=== PATIENT | female | born 1940 | race Caucasian/White ===

== ENCOUNTER 2017-09-03 17:54 | Inpatient (IN) | payer OTHER ==
[2017-09-03 18:58] LABS: Absolute Lymphocytes (CBC) 1.7 K/uL (0.7-4.9); Absolute Monocytes 0.8 K/uL (0.1-1.3); Absolute Neutrophil 4.5 K/uL (1.8-8.0); Basophils % 1.4 % (0-1.3); Eosinophils % 3.1 % (0-4.4); Hematocrit 42.8 % (36.0-45.0); Lymphocytes % 23.3 % (15.3-44.8); MCH 29.8 pg (27.0-35.0); MCV 89.1 fL (80-100); MPV 7.8 fL (7.6-11.3); Monocytes % 11.5 % (3.3-12.3)
[2017-09-03 18:59] LABS: Protime INR 0.96
[2017-09-03 19:05] LABS: Potassium 3.8 mEq/L (3.6-5.0)
[2017-09-03 19:11] LABS: Albumin 3.8 g/dL (3.2-5.5); Bilirubin Direct 0.1 mg/dL (0-0.2); Bilirubin Total 0.5 mg/dL (0.3-1.2); Protein, Total 7.4 g/dL (6.0-8.3)
--- NOTE | 2017-09-03 19:46 | RAD REPORT ---
EXAM DESCRIPTION: CT - Ct Stroke Brain Wo Cont - 09/03/2017 6:23 pm CLINICAL HISTORY: Nonverbal patient, code stroke evaluation CLINICAL HISTORY: None. TECHNIQUE: Axial 5 millimeter thick images of the head were obtained without IV contrast. All CT scans are performed using dose optimization technique as appropriate and may include automated exposure control or mA/KV adjustment according to patient size. FINDINGS: No intracranial hemorrhage, mass, or cerebral edema. No acute cortical based infarction. N o cortical edema or sulcal effacement. Advanced atrophy and chronic ischemic changes are present. Francis tricular size is in proportion to volume loss. No extra-axial fluid collections. Pruitt matter-white m atter differentiation is preserved. Arterial and physiologic calcifications are present. Visualized portions of the mastoid air cells, paranasal sinuses, and orbits are unremarkable. Findings telephoned to the referring clinician 1818 hours. IMPRESSION: Advanced atrophy and chronic ischemic change similar to comparison. No acute intracrania l finding.
--- NOTE | 2017-09-03 20:05 | RAD REPORT ---
EXAM DESCRIPTION: RAD - Chest Single View - 09/03/2017 6:51 pm CLINICAL HISTORY: Code stroke chest film, CVA COMPARISON: July 2016 TECHNIQUE: AP portable chest image was obtained 1811 hours . FINDINGS: No peripheral mass, consolidation or significant failure finding. Interstitial markings ar e prominent, fractionally increased over comparison. Heart and vasculature are normal. No measurable pleural effusion and no pneumothorax. No gross bony abnormality seen. No acute aortic findings suspec leslie. IMPRESSION: Minimal interstitial edema or infiltrate pattern. No focal mass or consolidation.
--- NOTE | 2017-09-03 20:25 | EDPHYS ---
Physician Documentation [facility] Name: Yvette Ordaz Age: 77 yrs Sex: Female : 1940 Arrival Date: 09/03/2017 Time: 17:59 Bed 3 Private MD: Haris Bragg E ED Physician Navin Mendiola HPI: 09/03 18:12 This 77 yrs old Female presents to ER via Unassigned with complaints of jr8 DROOLING, Trouble Walking, Eye Problem. 18:12 Last known well 19:30 yesterday. jr8 18:43 The patient's problem is reported as weakness, that is generalized. Onset: The jr8 symptoms/episode began/occurred acutely, today. Duration: This was a single incident. Context: the episode(s) was witnessed, by family, symptoms became apparent upon waking. The symptoms are alleviated by nothing. The symptoms are aggravated by nothing. Associated signs and symptoms: The patient has no apparent associated signs or symptoms. Severity of symptoms: At their worst the symptoms were moderate in the emergency department the symptoms are unchanged. The patient has not experienced similar symptoms in the past. The patient has not recently seen a physician. Family stated that patient is normally aphasic. Stated that she normally is generally week but can get up and walk a few steps when helped and can sometimes converse but only a few words at a time. Today noticed she would not help to stand at all and has not spoke a word today. Historical: - Allergies: 18:17 No Known Allergies; aj - Home Meds: 18:17 amlodipine 10 mg tab 1 tab once daily for Hypertension [Active]; clopidogrel 75 mg Oral aj tab 1 tab once daily [Active]; famotidine 20 mg Oral tab 1 tab 2 times per day [Active]; hydralazine 25 mg Oral tab 3 tab up to 4 times daily as need if SBP is over 180. for Hypertension [Active]; losartan 50 mg Oral tab 1 tab once daily [Active]; metoprolol tartrate 25 mg Oral tab 1 tab 2 times per day for Hypertension [Active]; nitroglycerin 0.4 mg SL subl 1 tab every 5 minutes [Active]; oxybutynin chloride 5 mg Oral tr24 1 tab once daily [Active]; sertraline 50 mg Oral tab 1 tab once daily [Active]; - PMHx: 18:17 COPD; Hypertension; CVA; aj - PSHx: 18:17 None; aj - Immunization history:: Adult Immunizations up to date. - Social history:: Smoking status: Patient/guardian denies using tobacco. - Ebola Screening: : Patient negative for fever greater than or equal to 101.5 degrees Fahrenheit, and additional compatible Ebola Virus Disease symptoms Patient denies exposure to infectious person Patient denies travel to an Ebola-affected area in the 21 days before illness onset No symptoms or risks identified at this time. ROS: 18:12 Unable to obtain ROS due to patient's speech is incomprehensible. jr8 Exam: 18:12 Eyes: Pupils equal round and reactive to light, extra-ocular motions intact. Lids and jr8 lashes normal. Conjunctiva and sclera are non-icteric and not injected. Cornea within normal limits. Periorbital areas with no swelling, redness, or edema. ENT: Nares patent. No nasal discharge, no septal abnormalities noted. Tympanic membranes are normal and external auditory canals are clear. Oropharynx with no redness, swelling, or masses, exudates, or evidence of obstruction, uvula midline. Mucous membranes moist. Neck: Trachea midline, no thyromegaly or masses palpated, and no cervical lymphadenopathy. Supple, full range of motion without nuchal rigidity, or vertebral point tenderness. No Meningismus. Cardiovascular: Regular rate and rhythm with a normal S1 and S2. No gallops, murmurs, or rubs. Normal PMI, no JVD. No pulse deficits. Respiratory: Lungs have equal breath sounds bilaterally, clear to auscultation and percussion. No rales, rhonchi or wheezes noted. No increased work of breathing, no retractions or nasal flaring. Abdomen/GI: Soft, non-tender, with normal bowel sounds. No distension or tympany. No guarding or rebound. No evidence of tenderness throughout. Back: No spinal tenderness. No costovertebral tenderness. Full range of motion. Skin: Warm, dry with normal turgor. Normal color with no rashes, no lesions, and no evidence of cellulitis. MS/ Extremity: Pulses equal, no cyanosis. Neurovascular intact. Full, normal range of motion. 18:12 Neuro: Orientation: unable to test, Mentation: able to follow commands, Memory: unable to test, Cranial nerves: visual torres are intact. extraocular movements are intact, Facial palsy and sensory deficits are absent. Speech is dysarthric, Motor: moves all fours, Sensation: no obvious gross deficits, seizure activity, is not displayed by the patient, Abnormal movements: there are no abnormal movements. 18:39 Radiologist reports: no acute findings jr Vital Signs: 18:17 BP 172 / 95; Pulse 70; Resp 20; Temp 98.8; Pulse Ox 96% on R/A; Weight 45.36 kg; Height aj 5 ft. 0 in. (152.40 cm); 19:45 BP 153 / 81; Pulse 57; Resp 19; Pulse Ox 96% on R/A; Pain 0/10; aa1 20:45 BP 179 / 105; Pulse 57; Resp 16; Pulse Ox 96% on R/A; Pain 0/10; aa1 21:30 BP 206 / 107; Pulse 62; Resp 18; Pulse Ox 95% on R/A; Pain 0/10; aa1 21:55 BP 164 / 74; Pulse 66; Resp 20; Pulse Ox 97% on R/A; Pain 0/10; aa1 22:15 BP 139 / 67; Pulse 62; Resp 18; Temp 98.7; Pulse Ox 96% on R/A; Pain 0/10; aa1 18:17 Body Mass Index 19.53 (45.36 kg, 152.40 cm) aj NIH Stroke Scale Scores: 18:12 NIHSS Score: 15 jr8 18:25 NIHSS Score: 15 iw MDM: 18:09 Patient medically screened. 8 20:23 Data reviewed: vital signs, nurses notes, lab test result(s), EKG, radiologic studies, [facility] CT scan, plain films, and as a result, I will admit patient. Data interpreted: Pulse oximetry: on room air is 96 %. Interpretation: normal. Counseling: I had a detailed discussion with the patient and/or guardian regarding: the historical points, exam findings, and any diagnostic results supporting the discharge/admit diagnosis, lab results, radiology results, the need for further work-up and treatment in the hospital. 20:24 Physician consultation: Jovan Belle MD was called at 20:24, was contacted at 20:24, jr8 regarding admission, to the telemetry unit. consult, patient's condition, and will see patient. 09/03 18:11 Order name: Hepatic Function; Complete Time: 19:18 [facility] 09/03 18:11 Order name: Magnesium; Complete Time: 19:18 [facility] 09/03 18:11 Order name: Basic Metabolic Panel; Complete Time: 19:18 [facility] 09/03 18:11 Order name: CBC with Diff; Complete Time: 19:20 [facility] 09/03 18:11 Order name: Protime (+inr); Complete Time: 19:18 [facility] 09/03 18:11 Order name: Ptt, Activated; Complete Time: 19:18 [facility] 09/03 18:11 Order name: CT Stroke Brain w/o Contrast; Complete Time: 19:46 bd 09/03 18:11 Order name: Urine Microscopic Only; Complete Time: 20:27 [facility] 09/03 18:11 Order name: Stroke CXR 1 View; Complete Time: 20:06 [facility] 09/03 18:59 Order name: Glucose, Ancillary Testing; Complete Time: 19:08 [facility] 09/03 20:00 Order name: Urine Dipstick--Ancillary (enter results); Complete Time: 20:27 2 09/03 20:27 Order name: Urine Culture [facility] 09/03 18:11 Order name: EKG; Complete Time: 18:12 [facility] 09/03 18:11 Order name: Accucheck; Complete Time: 18:49 [facility] 09/03 18:11 Order name: Cardiac monitoring; Complete Time: 18:49 [facility] 09/03 18:11 Order name: EKG - Nurse/Tech; Complete Time: 18:51 [facility] 09/03 18:11 Order name: IV Saline Lock; Complete Time: 18:49 [facility] 09/03 18:11 Order name: Labs collected and sent; Complete Time: 18:49 [facility] 09/03 18:11 Order name: NPO; Complete Time: 18:49 [facility] 09/03 18:11 Order name: O2 Per Protocol; Complete Time: 18:49 [facility] 09/03 18:11 Order name: O2 Sat Monitoring; Complete Time: 18:49 [facility] 09/03 18:11 Order name: Stroke Swallow Screen; Complete Time: 19:58 [facility] 09/03 18:11 Order name: Urine Dipstick-Ancillary (obtain specimen); Complete Time: 19:56 [facility] 09/03 19:09 Order name: Straight Cath - Urine; Complete Time: 19:56 09/03 20:30 Order name: CONS Physician Consult EDMS Administered Medications: 21:09 Drug: Rocephin 1 grams Route: IV; Rate: calculated rate; Site: right antecubital; aa1 21:19 Follow up: IV Status: Completed infusion aa1 21:09 Drug: Aspirin Suppository 300 mg Route: IN; aa1 22:10 Follow up: Response: No adverse reaction; No change in condition aa1 Point of Care Testing: Blood Glucose: 18:49 Blood Glucose: 140 mg/dL; dh3 Ranges: Critical Glucose Levels:Adult <50 mg/dl or >400 mg/dl <40 mg/dl or >180 mg/dl Disposition: 09/03/17 20:24 Hospitalization ordered by Jovan Belle for Inpatient Admission. Preliminary diagnosis are Altered mental status, unspecified, Urinary tract infection, site not specified. - Bed requested for Telemetry/MedSurg (Inpatient). - Status is Inpatient Admission. aa1 - Condition is Fair. - Problem is new. - Symptoms are unchanged. UTI on Admission? Yes NIH Stroke Scale - NIH Stroke Score Date: 09/03/2017 Time: 18:12 Total Score = 15 1a. Level of Consciousness (LOC) - 0(Alert) 1b. Level of Consciousness (LOC) (Year \T\ Age) - 2(Neither) 1c. LOC Commands (Open \T\ Closes Eyes/Scout Leaser) - 0(Both) 2. Best Gaze (Lateral Gaze Paresis) - 0(Normal) 3. Visual Field Loss - 0(No visual loss) 4. Facial Palsy - 0(Normal) 5a. Left Arm: Motor (10-second hold) - 2(Drift, some effort against gravity) 5b. Right Arm: Motor (10-second hold) - 2(Drift, some effort against gravity) 6a. Left Leg: Motor (5-second hold - always test supine) - 2(Drift, some effort against gravity) 6b. Right Leg: Motor (5-second hold - always test supine) - 2(Drift, some effort against gravity) 7. Limb Ataxia (finger/nose \T\ heel/naylor - test with eyes open) - 0(Absent) 8. Sensory Loss (pinprick arms/legs/face) - 0(Normal) 9. Best Language: Aphasia (description/naming/reading) - 3(Mute, global aphasia) 10. Dysarthria (speech clarity - read or repeat words) - 2(Severe) 11. Extinction and Inattention (visual/tactile/auditory/spatial/personal) - 0(No abnormality) Initials: jr8 NIH Stroke Scale - NIH Stroke Score Date: 09/03/2017 Time: 18:25 Total Score = 15 1a. Level of Consciousness (LOC) - 0(Alert) 1b. Level of Consciousness (LOC) (Year \T\ Age) - 2(Neither) 1c. LOC Commands (Open \T\ Closes Eyes/Scout Leaser) - 0(Both) 2. Best Gaze (Lateral Gaze Paresis) - 0(Normal) 3. Visual Field Loss - 0(No visual loss) 4. Facial Palsy - 0(Normal) 5a. Left Arm: Motor (10-second hold) - 2(Drift, some effort against gravity) 5b. Right Arm: Motor (10-second hold) - 2(Drift, some effort against gravity) 6a. Left Leg: Motor (5-second hold - always test supine) - 2(Drift, some effort against gravity) 6b. Right Leg: Motor (5-second hold - always test supine) - 2(Drift, some effort against gravity) 7. Limb Ataxia (finger/nose \T\ heel/naylor - test with eyes open) - 0(Absent) 8. Sensory Loss (pinprick arms/legs/face) - 0(Normal) 9. Best Language: Aphasia (description/naming/reading) - 3(Mute, global aphasia) 10. Dysarthria (speech clarity - read or repeat words) - 2(Severe) 11. Extinction and Inattention (visual/tactile/auditory/spatial/personal) - 0(No abnormality) Initials: iw Addendum: 09/05/2017 07:00 Co-signature as Attending Physician, Navin Mendiola MD I agree with the kdr assessment and plan of care. Signatures: Dispatcher [employer] Lory Anderson RN RN kl Kern, Alissa, RN RN aa1 Cheyanne Pat RN RN aj Rittger, Kevin, MD MD kdr Roszak, Josh, PA PA jr8 Corrections: (The following items were deleted from the chart) 09/03 18:21 18:12 Head Brain Wo [id number].RAD.BRZ ordered. EDMS EDMS 20:28 20:24 Hospitalization Ordered by Jovan Belle MD for Inpatient Admission. jr8 Preliminary diagnosis is Altered mental status, unspecified; Urinary tract infection, site not specified. Bed requested for Telemetry/MedSurg (Inpatient). Status is Inpatient Admission. Condition is Fair. Problem is new. Symptoms are unchanged. UTI on Admission? Yes. jr8 20:28 20:28 09/03/2017 20:24 Hospitalization Ordered by Jovan Belle MD for jr8 Inpatient Admission. Preliminary diagnosis is Altered mental status, unspecified. Bed requested for Telemetry/MedSurg (Inpatient). Status is Inpatient Admission. Condition is Fair. Problem is new. Symptoms are unchanged. UTI on Admission? Yes. jr8 21:05 20:28 09/03/2017 20:24 Hospitalization Ordered by Jovan Belle MD for jr8 Inpatient Admission. Preliminary diagnosis is Altered mental status, unspecified. Bed requested for Telemetry/MedSurg (Inpatient). Status is Inpatient Admission. Condition is Fair. Problem is new. Symptoms are unchanged. UTI on Admission? No. jr8 21:24 21:05 09/03/2017 20:24 Hospitalization Ordered by Jovan Belle MD for kl Inpatient Admission. Preliminary diagnosis is Altered mental status, unspecified; Urinary tract infection, site not specified. Bed requested for Telemetry/MedSurg (Inpatient). Status is Inpatient Admission. Condition is Fair. Problem is new. Symptoms are unchanged. UTI on Admission? Yes. jr8 22:26 21:24 09/03/2017 20:24 Hospitalization Ordered by Jovan Belle MD for aa1 Inpatient Admission. Preliminary diagnosis is Altered mental status, unspecified; Urinary tract infection, site not specified. Bed requested for Telemetry/MedSurg (Inpatient). Status is Inpatient Admission. Condition is Fair. Problem is new. Symptoms are unchanged. UTI on Admission? Yes. richard
--- NOTE | 2017-09-03 20:25 | ER ---
Nurse's Notes [facility] Name: Yvette Ordaz Age: 77 yrs Sex: Female : 1940 Arrival Date: 09/03/2017 Time: 17:59 Bed 3 Private MD: Haris Bragg E Diagnosis: Altered mental status, unspecified;Urinary tract infection, site not specified Presentation: 09/03 18:13 Presenting complaint: Child states: Woke up at 0730 this AM and was unable to speak or aj bear weight. Decreased activity from normal. Last seen normal at 1930 last night. Patient is drooling with slurred speech. Transition of care: patient was not received from another setting of care. An acute neurological deficit is present. The charge nurse has been notified. Onset of symptoms was September 02, 2017 at 19:30. Risk Assessment: Do you want to hurt yourself or someone else? Patient reports no desire to harm self or others. Initial Sepsis Screen:. Care prior to arrival: None. 18:13 Method Of Arrival: Wheelchair aj 18:13 Acuity: ANN 2 aj 19:00 Initial Sepsis Screen: Does the patient meet any 2 criteria? No. Patient's initial aa1 sepsis screen is negative. Does the patient have a suspected source of infection? No. Patient's initial sepsis screen is negative. Triage Assessment: 18:17 The onset of the patients symptoms was more than six hours ago. The onset of the aj patients symptoms was September 02, 2017 at 19:30. General: Appears in no apparent distress. comfortable, Behavior is calm, cooperative, appropriate for age. Pain: Unable to use pain scale. Patient is unresponsive. Neuro: Level of Consciousness is awake, stuporous, Oriented to none Horticultural Therapist are Weakness in bilateral Gait is ataxic, Speech is slurred, with expressive aphasia noted, Facial symmetry appears normal. Respiratory: Airway is patent Trachea midline Respiratory effort is even, unlabored, Respiratory pattern is regular, symmetrical. Derm: Skin is intact, is fragile, Skin is pink, warm \T\ dry. normal. Stroke Activation: Symptom onset > 6 hours Physician: Stroke Attending; Name: ; Notified At: ; Arrived At: Physician: Chief Stroke Resident; Name: ; Notified At: ; Arrived At: Physician: Stroke Resident; Name: ; Notified At: ; Arrived At: Physician: ED Attending; Name: ; Notified At: 18:07; Arrived At: Physician: ED Resident; Name: ; Notified At: ; Arrived At: Historical: - Allergies: 18:17 No Known Allergies; aj - Home Meds: 18:17 amlodipine 10 mg tab 1 tab once daily for Hypertension [Active]; clopidogrel 75 mg Oral aj tab 1 tab once daily [Active]; famotidine 20 mg Oral tab 1 tab 2 times per day [Active]; hydralazine 25 mg Oral tab 3 tab up to 4 times daily as need if SBP is over 180. for Hypertension [Active]; losartan 50 mg Oral tab 1 tab once daily [Active]; metoprolol tartrate 25 mg Oral tab 1 tab 2 times per day for Hypertension [Active]; nitroglycerin 0.4 mg SL subl 1 tab every 5 minutes [Active]; oxybutynin chloride 5 mg Oral tr24 1 tab once daily [Active]; sertraline 50 mg Oral tab 1 tab once daily [Active]; - PMHx: 18:17 COPD; Hypertension; CVA; aj - PSHx: 18:17 None; aj - Immunization history:: Adult Immunizations up to date. - Social history:: Smoking status: Patient/guardian denies using tobacco. - Ebola Screening: : Patient negative for fever greater than or equal to 101.5 degrees Fahrenheit, and additional compatible Ebola Virus Disease symptoms Patient denies exposure to infectious person Patient denies travel to an Ebola-affected area in the 21 days before illness onset No symptoms or risks identified at this time. Screenin:41 Abuse screen: Denies threats or abuse. Denies injuries from another. Nutritional iw screening: No deficits noted. Tuberculosis screening: No symptoms or risk factors identified. Fall Risk None identified. Assessment: 18:21 Reassessment: pt transported back to ER bed 3, placed on carmella, CURT Kay at bedside iw to assess pt. 18:25 General: Appears in no apparent distress. Behavior is calm, cooperative. Pain: Unable iw to use pain scale. Does not appear to understand pain scale. Neuro: Level of Consciousness is awake, alert, obeys commands, Weakness in bilateral arm(s) leg(s) Facial symmetry appears normal. Cardiovascular: Patient's skin is warm and dry. Respiratory: Respiratory effort is even, unlabored, Respiratory pattern is regular, symmetrical. GI: Abdomen is flat, non-distended. Derm: Skin is pink, warm \T\ dry. normal. Musculoskeletal: Range of motion: limited in all extremities. 18:36 Patient has been NPO before screening. The patient is alert, and able to follow iw commands. The patient exhibits slurred or garbled speech. The patient is exhibiting difficulty speaking. The patient is exhibiting difficulty understanding words. The patient is able to swallow own secretions with no drooling or need for suction. T-PA (Activase) Screening: Indications: Treatment will start within 4.5 hours onset of symptoms: No. 18:42 Reassessment: pt daughter states pt has not been moving as much as she normally does, iw pt is not reaching out for things like she normally does, pt does not normally walk, needs almost total assistance with daily activities. 19:30 The patient did not tolerate one teaspoon of water. Drooling, immediate coughing, aa1 gurgling, or clearing of the throat was noted. Bedside swallow screening discontinued. Patient kept NPO until cleared by Speech Therapy or Physician. When pt given teaspoon of water it immediately ran out of her mouth The patient failed the bedside swallow screening. The patient will be kept NPO until cleared by Speech Therapy or Physician. Provider notified of bedside swallow screening results: Rahul ELIAS. 21:00 Reassessment: Patient appears in no apparent distress at this time. No changes from aa1 previously documented assessment. Patient and/or family updated on plan of care and expected duration. Pain level reassessed. Family at bedside. Awaiting admission to hospital. 22:05 Reassessment: Report given to Marina Wyatt RN. aa1 22:11 Reassessment: Patient appears in no apparent distress at this time. No changes from aa1 previously documented assessment. Neuro: Level of Consciousness is awake, alert, Speech with expressive aphasia noted. Respiratory: Airway is patent Respiratory effort is even, unlabored. Derm: Skin is pink, warm \T\ dry. Vital Signs: 18:17 BP 172 / 95; Pulse 70; Resp 20; Temp 98.8; Pulse Ox 96% on R/A; Weight 45.36 kg; Height aj 5 ft. 0 in. (152.40 cm); 19:45 BP 153 / 81; Pulse 57; Resp 19; Pulse Ox 96% on R/A; Pain 0/10; aa1 20:45 BP 179 / 105; Pulse 57; Resp 16; Pulse Ox 96% on R/A; Pain 0/10; aa1 21:30 BP 206 / 107; Pulse 62; Resp 18; Pulse Ox 95% on R/A; Pain 0/10; aa1 21:55 BP 164 / 74; Pulse 66; Resp 20; Pulse Ox 97% on R/A; Pain 0/10; aa1 22:15 BP 139 / 67; Pulse 62; Resp 18; Temp 98.7; Pulse Ox 96% on R/A; Pain 0/10; aa1 18:17 Body Mass Index 19.53 (45.36 kg, 152.40 cm) aj NIH Stroke Scale Scores: 18:12 NIHSS Score: 15 jr8 18:25 NIHSS Score: 15 iw ED Course: 17:59 Patient arrived in ED. rg4 18:00 Haris Bragg MD is Private Physician. rg4 18:09 [facility] jr8 18:09 Navin Mendiola MD is Attending Physician. jr8 18:15 Triage completed. aj 18:17 Arm band placed on right wrist. Patient placed in an exam room. aj 18:23 CT Stroke Brain w/o Contrast In Process Unspecified. EDMS 18:32 Missed attempt(s): 20 gauge in right antecubital area. Bleeding controlled, band aid iw applied, catheter tip intact. 18:33 Missed attempt(s): 22 gauge in right antecubital area. Bleeding controlled, band aid dh3 applied, catheter tip intact. 18:40 Missed attempt(s): 22 gauge in right antecubital area. Bleeding controlled, band aid dh3 applied, catheter tip intact. 18:43 Initial lab(s) drawn, by me, sent to lab. Inserted saline lock: 22 gauge in right dh3 antecubital area, using aseptic technique. Blood collected. 18:51 Stroke CXR 1 View In Process Unspecified. EDMS 19:00 Patient has correct armband on for positive identification. Placed in gown. Bed in low aa1 position. Call light in reach. Side rails up X2. Adult w/ patient. telemetry monitor on. Pulse ox on. NIBP on. Warm blanket given. 19:36 Jackie Garcia RN is Primary Nurse. aa1 19:45 Urine collected: straight cath specimen, cloudy. Straight cath inserted, using sterile aa1 technique, 16 Fr. Specimen obtained. Returned cloudy urine. Patient tolerated well. 20:24 Jovan Belle MD is Hospitalizing Provider. jr8 21:55 No provider procedures requiring assistance completed. Patient admitted, IV remains in aa1 place. Administered Medications: 21:09 Drug: Rocephin 1 grams Route: IV; Rate: calculated rate; Site: right antecubital; aa1 21:19 Follow up: IV Status: Completed infusion aa1 21:09 Drug: Aspirin Suppository 300 mg Route: NC; aa1 22:10 Follow up: Response: No adverse reaction; No change in condition aa1 Point of Care Testing: Blood Glucose: 18:49 Blood Glucose: 140 mg/dL; dh3 Ranges: Outcome: 20:24 Decision to Hospitalize by Provider. jr8 22:20 Admitted to Tele accompanied by tech, via stretcher, room 201, with chart, Report aa1 called to Marina Wyatt RN 22:20 Condition: stable 22:20 Discharge instructions given to family, Instructed on the need for admit, Demonstrated understanding of instructions. 22:26 Patient left the ED. aa1 NIH Stroke Scale - NIH Stroke Score Date: 09/03/2017 Time: 18:12 Total Score = 15 1a. Level of Consciousness (LOC) - 0(Alert) 1b. Level of Consciousness (LOC) (Year \T\ Age) - 2(Neither) 1c. LOC Commands (Open \T\ Closes Eyes/Rn Charge) - 0(Both) 2. Best Gaze (Lateral Gaze Paresis) - 0(Normal) 3. Visual Field Loss - 0(No visual loss) 4. Facial Palsy - 0(Normal) 5a. Left Arm: Motor (10-second hold) - 2(Drift, some effort against gravity) 5b. Right Arm: Motor (10-second hold) - 2(Drift, some effort against gravity) 6a. Left Leg: Motor (5-second hold - always test supine) - 2(Drift, some effort against gravity) 6b. Right Leg: Motor (5-second hold - always test supine) - 2(Drift, some effort against gravity) 7. Limb Ataxia (finger/nose \T\ heel/naylor - test with eyes open) - 0(Absent) 8. Sensory Loss (pinprick arms/legs/face) - 0(Normal) 9. Best Language: Aphasia (description/naming/reading) - 3(Mute, global aphasia) 10. Dysarthria (speech clarity - read or repeat words) - 2(Severe) 11. Extinction and Inattention (visual/tactile/auditory/spatial/personal) - 0(No abnormality) Initials: josé NIH Stroke Scale - NIH Stroke Score Date: 09/03/2017 Time: 18:25 Total Score = 15 1a. Level of Consciousness (LOC) - 0(Alert) 1b. Level of Consciousness (LOC) (Year \T\ Age) - 2(Neither) 1c. LOC Commands (Open \T\ Closes Eyes/Rn Charge) - 0(Both) 2. Best Gaze (Lateral Gaze Paresis) - 0(Normal) 3. Visual Field Loss - 0(No visual loss) 4. Facial Palsy - 0(Normal) 5a. Left Arm: Motor (10-second hold) - 2(Drift, some effort against gravity) 5b. Right Arm: Motor (10-second hold) - 2(Drift, some effort against gravity) 6a. Left Leg: Motor (5-second hold - always test supine) - 2(Drift, some effort against gravity) 6b. Right Leg: Motor (5-second hold - always test supine) - 2(Drift, some effort against gravity) 7. Limb Ataxia (finger/nose \T\ heel/naylor - test with eyes open) - 0(Absent) 8. Sensory Loss (pinprick arms/legs/face) - 0(Normal) 9. Best Language: Aphasia (description/naming/reading) - 3(Mute, global aphasia) 10. Dysarthria (speech clarity - read or repeat words) - 2(Severe) 11. Extinction and Inattention (visual/tactile/auditory/spatial/personal) - 0(No abnormality) Initials: Signatures: Dispatcher [employer] Jackie Mcleod RN RN aa1 Cheyanne Pat RN RN aj Williams, Irene, RN RN iw Roszak, Josh, PA PA jr8 Billie Beltran 4 Jada Garcia [facility]
[2017-09-03 20:26] LABS: Urine Amorphous Sediment 1+ /HPF (NONE SEEN); Urine Bacteria <20 /HPF (<20); Urine Culture Reflex Order REFLEXED; Urine Mucus 1+ /HPF (NONE SEEN)
[2017-09-03 20:26] LABS: Urine Blood 1+ (NEG); Urine Glucose NEGATIVE (NEG); Urine Protein 1+ (NEG)
[2017-09-03] MEDS ORDERED: CEFTRIAXONE/SWI 1gm 1 GM/10 ML SYR ONE (21:04)
[2017-09-03] MEDS ORDERED: ASPIRIN 600 MG/SUPP PR ONE (21:04)
--- NOTE | 2017-09-03 21:37 | P.HP ---
Certification for Inpatient Patient admitted to: Inpatient With expected LOS: >2 Midnights Practitioner: I am a practitioner with admitting privileges, knowledge of patient current condition, hospital course, and medical plan of care. Services: Services provided to patient in accordance with Admission requirements found in Title 42 Section 412.3 of the Code of Federal Regulations Patient History Date of Service: 09/03/17 Reason for admission: AMS, UTI History of Present Illness: Ms Ordaz is a 77 years old woman with history of HTN, A.Fib, CVA with residual aphasia, and limited mobility, was brought to ED tonight since the patient was more lethargic than usual. She is not able to communicate at all today, she is usually able to say some words according to her daughter. Last time she has seen right was yesterday 19:30. No history of fever or chills. In ER CT head shows no acute abnormalities, again seen advanced atrophy and chronic ischemic change similar to comparison. Lab work shows normal WBC, UA abnormal consistent with UTI. No fever. Allergies clonidine Adverse Reaction (Verified 10/03/16 06:51) lethargy Home Medications: Oxybutynin Chloride [Ditropan Xl] 5 mg PO DAILY 06/21/16 Amlodipine [Norvasc*] 10 mg PO DAILY #30 tab 07/27/16 Clopidogrel Bisulfate [Plavix*] 75 mg PO DAILY #30 tablet 07/27/16 Famotidine [Pepcid] 20 mg PO BID #60 tablet 07/27/16 Nitroglycerin [Nitrostat*] 0.4 mg SL UD PRN #50 tab 07/27/16 Carvedilol [Coreg*] 6.25 mg PO BID #60 tab 10/03/16 Docusate [Colace Cap*] 100 mg PO BID #60 cap 10/03/16 Hydralazine [Apresoline*] 25 mg PO TID PRN #30 tab 10/03/16 Polyethyl Gly 3350 [Glycolax*] 17 gm PO DAILY udbot 10/03/16 - Past Medical/Surgical History Diabetic: No -: HTN -: CVA -: COPD -: AFIB -: right hemiparesis -: aphasic -: HYSTERECTOMY -: RIB REMOVAL - Social History Alcohol use: No CD- Drugs: No Caffeine use: Yes Review of Systems is unable to be obtained (aphasic) Physical Examination - Physical Exam General: Alert, In no apparent distress HEENT: Atraumatic, PERRLA, Mucous membr. moist/pink, Sclerae nonicteric Neck: Supple, 2+ carotid pulse no bruit, No LAD, Without JVD or thyroid abnormality Respiratory: Clear to auscultation bilaterally, Normal air movement Cardiovascular: Normal S1 S2, No gallops Gastrointestinal: Normal bowel sounds, No tenderness Musculoskeletal: No tenderness Integumentary: No rashes Neurological: Normal tone, Normal affect, Abnormal speech (aphasia) Lymphatics: No axilla or inguinal lymphadenopathy - Studies Laboratory Data (last 24 hrs) 09/03/17 18:43: PT 11.3, INR 0.96, APTT 30.7 09/03/17 18:43: WBC 7.4, Hgb 14.3, Hct 42.8, Plt Count 284 09/03/17 18:43: Sodium 136, Potassium 3.8, BUN 23 H, Creatinine 1.07 H, Glucose 147 H, Magnesium 2.0, Total Bilirubin 0.5, AST 21, ALT 13, Alkaline Phosphatase 86 Assessment and Plan - Problems (Diagnosis) (1) UTI (urinary tract infection) Current Visit: Yes Status: Acute Qualifiers: Urinary tract infection type: acute cystitis Hematuria presence: without hematuria Qualified Code(s): N30.00 - Acute cystitis without hematuria (2) Generalized weakness Current Visit: Yes Status: Acute (3) Altered mental status Onset Date: 06/24/16 Current Visit: No Status: Acute Qualifiers: Altered mental status type: unspecified Qualified Code(s): R41.82 - Altered mental status, unspecified (4) Moderate protein-calorie malnutrition Current Visit: No Status: Chronic - Plan The patient will be admitted to the hospital due to worsening aphasia and generalized weakness. This is probably secondary to UTI. CT head shown no acute findings. Will start IV Rocephin, if not improving soon, consider new neurologic event. Dr Huitron consulted. - Advance Directives Does patient have a Living Will: Yes Does patient have a Durable POA for Healthcare: Yes - Code Status/Comfort Care Code Status Assessed: Yes Code Status: Full Code
[2017-09-03] MEDS ORDERED: HYDRALAZINE HCL 20 MG/ML VIAL ONE (21:41)
[2017-09-03] MEDS: HYDRALAZINE HCL 20 MG/ML VIAL IV PRN (21:41)
[2017-09-03] MEDS ORDERED: ONDANSETRON 4 MG/2 ML VIAL IV PRN (22:04)
[2017-09-03] MEDS ORDERED: ACETAMINOPHEN 500 MG TAB PO PRN (22:04)
--- NOTE | 2017-09-03 23:00 | EKG ---
Test Date: 2017-09-03 Test Time: 18:24:41 Senior Principal: JASWINDER MEASUREMENT RESULTS: Intervals: Rate: 71 NV: 118 QRSD: 82 QT: 424 QTc: 460 [place]: P: 41 NV: 118 QRS: -52 T: 166 INTERPRETIVE STATEMENTS: Normal sinus rhythm Left anterior fascicular block Left ventricular hypertrophy with repolarization abnormality Anterior infarct, age undetermined Abnormal ECG Compared to ECG 09/29/2016 15:12:26 Sinus bradycardia no longer present Myocardial infarct finding still present Electronically Signed On 09-03-17 22:59:31 CDT by Eugene Tan
[2017-09-04] MEDS: HYDRALAZINE HCL 20 MG/ML VIAL IV PRN ×2 (05:10→20:18)
[2017-09-04 05:55] LABS: Absolute Lymphocytes (CBC) 0.8 K/uL (0.7-4.9); Absolute Monocytes 0.4 K/uL (0.1-1.3); Absolute Neutrophil 9.8 K/uL (1.8-8.0); Basophils % 0.5 % (0-1.3); Eosinophils % 0.1 % (0-4.4); Lymphocytes % 7.4 % (15.3-44.8); MCV 88.5 fL (80-100); MPV 7.8 fL (7.6-11.3); Monocytes % 3.5 % (3.3-12.3); RBC Red Blood Cell Count 4.74 M/uL (3.86-4.86)
[2017-09-04 06:03] LABS: Potassium 3.7 mEq/L (3.6-5.0)
[2017-09-04 07:31] LABS: Blood Morphology Comment NOT SEEN (NOT SEEN); Platelet Estimate ADEQ; Urine White Blood Cell Casts OK
[2017-09-04] MEDS ORDERED: CEFTRIAXONE 1 GM/NS 50 ML 1 GM/50 ML BAG IV SCH (09:00)
[2017-09-04] MEDS: ASPIRIN 600 MG/SUPP PR SCH (09:50)
[2017-09-04] MEDS: ENOXAPARIN 40 MG/0.4 ML SQ SCH (09:51)
--- NOTE | 2017-09-04 15:47 | PN ---
Date of Progress Note: 09/04/2017 Subjective: The patient is seen and examined. Chart reviewed and case discussed with RN. The patie nt is very much lethargic, aphasic. Review of Systems: Limited due to the patient's medical condition. Medications: Reviewed. Physical Examination: Vital Signs: Temperature 98.2, heart rate 92, blood pressure 123/81, respirations 16, O2 94% on room air. General: Asleep, arousable, but lethargic. Elderly female, appears older than stated age, ill-appea ring, frail. BMI 18. CV: S1, S2. Peripheral pulses present. Regular rate and rhythm. Respiratory: Clear to auscultation bilaterally. No wheezing. Gastrointestinal: Abdomen is soft, nontender, nondistended. Positive bowel sounds. Extremities: No clubbing, cyanosis, edema. Neuro: Unable to properly assess due to the patient's medical condition; however, the patient's spee ch is aphasic. Normal tone, normal affect. Skin: No rashes. Laboratory Data: Sodium 138, potassium 3.7, chloride 102, CO2 26, BUN 24, creatinine 1.17, glucose 1 47, calcium 9.5. WBC 11.1, H and H 14.2 and 42, platelets 284, neutrophils 88%. INR 0.96. Wound cu lture growing 4+ gram-negative rods. Assessment And Plan: A 77-year-old female with: 1.Acute metabolic encephalopathy, may be related to acute infection with urinary tract infection summer mateo possible stroke; however, CT scan of the head does not show any acute finding. Dr. Huitron with Neurology has been consulted. 2.Acute cystitis without hematuria. We will continue with IV Rocephin. We will follow up with cult ures, currently growing gram-negative rods. ID and sensitivity pending. 3.Generalized weakness. 4.Moderate protein-calorie malnutrition. The patient appears cachectic. BMI is 18. 5.Chronic kidney disease, stage 2. We will monitor creatinine. Continue IV fluid. Plan: Follow up with Neurology recommendations. Continue IV antibiotics. Follow up on ID and sensi tivity. We will need to address code status with family. The patient has limited quality of life, m ay need to be transferred to nursing facility, currently lives at home with [id number], who is t he primary caregiver. /KRISTAN Voice ID: [id number] Report ID: [id number]
[2017-09-04] MEDS: D5 0.45 NS 1,000 ML IV SCH ×2 (17:28→20:16)
[2017-09-04] MEDS: DOCUSATE NA 100 MG CAP PO SCH (19:41)
[2017-09-04] MEDS: FAMOTIDINE 20 MG TAB PO SCH (19:41)
[2017-09-04] MEDS ORDERED: CEFTRIAXONE/SWI 1gm 1 GM/10 ML SYR IV SCH (21:00)
[2017-09-05 05:39] LABS: Absolute Lymphocytes (CBC) 2.1 K/uL (0.7-4.9); Absolute Monocytes 0.8 K/uL (0.1-1.3); Absolute Neutrophil 3.8 K/uL (1.8-8.0); Basophils % 1.2 % (0-1.3); Eosinophils % 1.6 % (0-4.4); Hematocrit 40.1 % (36.0-45.0); Lymphocytes % 30.6 % (15.3-44.8); MCH 29.8 pg (27.0-35.0); MCV 88.8 fL (80-100); MPV 7.8 fL (7.6-11.3); Monocytes % 11.5 % (3.3-12.3); RBC Red Blood Cell Count 4.52 M/uL (3.86-4.86)
[2017-09-05 05:44] LABS: Potassium 3.6 mEq/L (3.6-5.0)
[2017-09-05] MEDS: HYDRALAZINE HCL 20 MG/ML VIAL IV PRN ×2 (06:01→12:55)
[2017-09-05] MEDS: DOCUSATE NA 100 MG CAP PO SCH ×2 (09:00→20:11)
[2017-09-05] MEDS: CLOPIDOGREL 75 MG TABLET PO SCH (09:00)
[2017-09-05] MEDS: FAMOTIDINE 20 MG TAB PO SCH ×2 (09:00→20:10)
[2017-09-05] MEDS: ASPIRIN 600 MG/SUPP PR SCH (09:46)
[2017-09-05] MEDS: ENOXAPARIN 40 MG/0.4 ML SQ SCH (09:46)
--- NOTE | 2017-09-05 15:08 | P.PN ---
Subjective Date of Service: 09/05/17 Chief Complaint: AMS, UTI Subjective: Improving Pt lives with Spouse, Daughter and her family. Daughter is primary manager home healthcare of Mr. and Mrs. Law and her Mother in Law. All take a significant amount of care for ADL, movement. Daughter reports that pt usually could assist with walking with walker and max assist to bathroom. States her Mother hasn't left her bed in about three weeks Review of Systems General: Weakness, Malaise Eyes: Eyelid Inflammation ENT: Unremarkable Respiratory: Unremarkable Cardiovascular: Unremarkable Gastrointestinal: Unremarkable Genitourinary: Other (sensitivity to Mefoxin - antibiotic changed/ also sensitive to Macrobid but pt is awaiting swallow screen) Musculoskeletal: Atrophy Integumentary: Unremarkable Neurological: Weakness, Other (family notes patient decline over past 2 months, unable to help with transferring herself. Pt fell a week ago but landed on her daughter on the couch without resultant injury) Physical Examination - Vital Signs Temperature: 98.3 F Blood Pressure: 173/79 Pulse: 64 Respirations: 20 Pulse Ox (%): 94 - Physical Exam General: Cachectic, Demented HEENT: Atraumatic, Normocephalic Neck: Supple Respiratory: Clear to auscultation bilaterally Cardiovascular: No edema Capillary refill: <2 Seconds Gastrointestinal: Hypoactive Musculoskeletal: No clubbing, No swelling Integumentary: No rashes Neurological: Abnormal speech, Dementia Urinary: Other (adult brief) External genitalia: Deferred Rectal: Deferred - Studies Microbiology Data (last 24 hrs): 09/03/17 19:55 Clean Catch Urine [place] Count - Final >100,000 CFU/ML. 09/03/17 19:55 Clean Catch Urine - Final Escherichia Coli Assessment & Plan - Problems (Diagnosis) (1) Generalized weakness Onset Date: 09/04/17 Current Visit: Yes Status: Acute Plan: Consult OT, consider inpatient rehab (2) UTI (urinary tract infection) Onset Date: 09/04/17 Current Visit: Yes Status: Acute Plan: Sensitivity returned, antibiotic changed to Mefoxin. Bacteria also sensitive to Macrobid. Pt has not passed swallow study to attempt po medications. Qualifiers: Urinary tract infection type: acute cystitis Hematuria presence: without hematuria Qualified Code(s): N30.00 - Acute cystitis without hematuria (3) Altered mental status Onset Date: 06/24/16 Current Visit: No Status: Acute Plan: Inpatient rehab for strength and ability to assist with ADLs Qualifiers: Altered mental status type: unspecified Qualified Code(s): R41.82 - Altered mental status, unspecified
--- NOTE | 2017-09-05 15:58 | RAD REPORT ---
EXAM DESCRIPTION: RAD - Barium Swallow Modified - 09/05/2017 3:20 pm CLINICAL HISTORY: suspect silent aspiration COMPARISON: Abdomen 1 View (KUB) dated 09/29/2016 TECHNIQUE: The patient was given liquid, semi-solid and solid forms of barium. Lateral view fluorosc opic imaging was performed in conjunction with speech pathology service. FINDINGS: Laryngeal penetration: not cleared with nectar and honey consistencies. Aspiration: NO cough with thin liquid. Mild pharyngeal residue: vallecular and pyriform with all consistencies. Delayed swallow reflex. Reduced hyolaryngeal excursion. Total fluoro time: 3 minutes 26 seconds.
[2017-09-05] MEDS ORDERED: CEFOXITIN/SWI 1gm 1 GM/10 ML SYR IV SCH (18:00)
[2017-09-05] MEDS ORDERED: CEFOXITIN SODIUM 1 GM/VIAL IVPB SCH (18:00)
[2017-09-05] MEDS ORDERED: CEFOXITIN/SWI 1gm 1 GM/10 ML SYR IVP SCH (18:00)
[2017-09-05] MEDS: CEFOXITIN/SWI 1gm 1 GM/10 ML SYR IVP SCH ×2 (18:02→23:35)
[2017-09-05] MEDS: D5 0.45 NS 1,000 ML IV SCH (19:21)
--- NOTE | 2017-09-05 20:42 | CON ---
Reason For Consultation: Consultation called by hospitalist because of altered mental status and uri nary tract infection. History Of Present Illness: Ms. Ordaz is a 77-year-old patient with multiple medical problems includin g chronic dementia, hypertension, atrial fibrillation, prior stroke with expressive and receptive aph armond, who was noted to be more confused, less interactive than her usual self by her family members. She does live at home with family members 24 hours a day. They are probably able to take care of he r including son and daughter. She came into [facility] on 09/03/2017, today is 09/05/2017 a nd she was evaluated in the emergency room with a brain CT scan which showed no acute ischemic or hem orrhagic change. The study, however, was remarkable for advanced atrophy and chronic small vessel is chemic disease, likely the reason for a vascular dementia. Laboratory studies did show urinary tract infection with positive nitrites, 1+ esterase, and 1+ total protein and cultures did grow [place] a coli, which is extended spectrum beta lactamase and for which she is being treated with cefotaxime per primary care team along with Rocephin. Since admission, per her son she has had times of better interaction where she answers questions. She was able to talk to a grandson and tell him happy day. His birthday was yesterday and she was able to do that and also follows some simple commands as per her son. She was also found to be dehydrated and has received IV fluids. No evidence of any sy stemic infections as her most recent complete blood count with differential is unremarkable. Past Medical History: As indicated above. Allergies: CLONIDINE. Home Medications: Ditropan XL 5 mg daily, Norvasc 10 mg daily, Plavix 75 mg daily, Pepcid 20 mg twic e daily, Nitrostat 0.4 mg sublingual as needed, Coreg 6.25 mg twice daily, Colace 100 mg twice daily, Apresoline 25 mg 3 times daily, Glycolax 17 g daily as needed. Please note, in her stroke she has had residual right hemiparesis and expressive and receptive aphasi as in addition to COPD with her past medical history. Family History: Noncontributory. Surgical History: Hysterectomy and rib removal. Social History: Lives with family. No alcohol, tobacco, or IV drug use. Review of Systems: The patient is unable to give given her aphasic stroke and the family did not report any recent fever s or apparent chills. No nausea or vomiting. No new focal deficits. Physical Examination: Vital signs: Blood pressure 173 systolic max, down to 131 today and that is the systolic blood press ure and diastolic range from 65-79, pulse 64, respiratory rate 15-18, temperature 98.3, oxygen satura tion 94% on room air. Weight 96 pounds. Height 5 feet. BMI 18.8. General: Ms. Ordaz is resting in bed. Family is at the bedside. She is sitting up, getting ready for dinner. There is some mild drooling noted from the right corner of the mouth and she does have the right-sided weakness from a chronic stroke. There is good air movement. Abdomen: Appears soft. Extremities: Show no significant edema or cyanosis. Neurologically: She is alert and tracks with eyes very well. She did not follow my commands to do o rdinary activities such as lift the arm or show thumbs up, but the patient's son, who was in the room , said just earlier she was following some simple commands and was able to interact with her grandson . Again, she has a decreased right nasolabial fold with poor excursion. She has less movement noted in the right upper and lower extremity compared to the left side, unable to fully assess coordinatio n, sensation, gait, and she has increased reflex on the right compared to the left side. Assessment: Ms. Ordaz is a 77-year-old patient with multifactorial reasons for encephalopathy. She pepe s a vascular dementia with a superimposed toxic encephalopathy from her urinary tract infection. She is also mildly dehydrated. In addition, she has an aphasic stroke which contributes to the confusio n. Plan: 1.Continue with antibiotics as appropriate. 2.Continue with hydration as appropriate. 3.Continue with aspirin. She is now 300 mg daily along with Plavix 75 mg daily for stroke risk redu ction. 4.Continue with DVT prophylaxis using Lovenox. 5.Continue with blood pressure management as appropriate. 6.Continue with stool softener. 7.Once the patient is discharged, she will require 24-hour care and supervision for safety, for mobi lization, for transfers, and family is available for that and had been caring those duties out. She may be discharged home and followup with Dr. Huitron as appropriate in 1 month. LB/MODL Voice ID: [id number] Report ID: [id number]
[2017-09-06] MEDS: CEFOXITIN/SWI 1gm 1 GM/10 ML SYR IVP SCH (05:11)
[2017-09-06 05:16] LABS: Absolute Lymphocytes (CBC) 1.7 K/uL (0.7-4.9); Absolute Monocytes 0.8 K/uL (0.1-1.3); Absolute Neutrophil 3.3 K/uL (1.8-8.0); Basophils % 1.1 % (0-1.3); Eosinophils % 3.2 % (0-4.4); Hematocrit 41.7 % (36.0-45.0); Lymphocytes % 27.6 % (15.3-44.8); MCH 30.2 pg (27.0-35.0); MCV 89.3 fL (80-100); MPV 7.7 fL (7.6-11.3); Monocytes % 13.5 % (3.3-12.3); RBC Red Blood Cell Count 4.67 M/uL (3.86-4.86)
[2017-09-06 05:35] LABS: Potassium 3.4 mEq/L (3.6-5.0)
[2017-09-06] MEDS: ASPIRIN 600 MG/SUPP PR SCH (09:54)
[2017-09-06] MEDS: DOCUSATE NA 100 MG CAP PO SCH ×2 (09:54→20:04)
[2017-09-06] MEDS: FAMOTIDINE 20 MG TAB PO SCH (09:54)
[2017-09-06] MEDS: CLOPIDOGREL 75 MG TABLET PO SCH (09:54)
[2017-09-06] MEDS: ENOXAPARIN 40 MG/0.4 ML SQ SCH (09:54)
[2017-09-06] MEDS: D5 0.45 NS 1,000 ML IV SCH (09:56)
--- NOTE | 2017-09-06 11:04 | P.PN ---
Subjective Date of Service: 09/06/17 Chief Complaint: AMS, UTI Subjective: Improving (Patient is doing well eating and drinking hemodynamically stable does not communicate) Review of Systems is unable to be obtained Physical Examination - Vital Signs Temperature: 97.2 F Blood Pressure: 140/76 Pulse: 65 Respirations: 18 Pulse Ox (%): 99 - Physical Exam General: Alert, Cooperative Neck: Supple Respiratory: Clear to auscultation bilaterally - Studies Microbiology Data (last 24 hrs): 09/03/17 19:55 Clean Catch Urine [place] Count - Final >100,000 CFU/ML. 09/03/17 19:55 Clean Catch Urine - Final Escherichia Coli Assessment & Plan - Problems (Diagnosis) (1) ESBL (extended spectrum beta-lactamase) producing bacteria infection Current Visit: Yes Status: Acute Plan: Patient has ESBL infection of the urinary tract plan to insert a PICC line treated with member her mg IV q.8 for 14 days at home patient is tolerating a diet continue with IV fluids Discharge Plan: Home - Code Status/Comfort Care Code Status Assessed: Yes Code Status: Full Code
[2017-09-06] MEDS: NACHLORIDE 0.45% 1,000 ML IV SCH (12:52)
[2017-09-06] MEDS: Meropenem 500 MG in NA CHLORIDE 0.9% 100 ML IV SCH ×2 (12:52→20:03)
[2017-09-06] MEDS ORDERED: Meropenem 500 MG VIAL IV SCH (17:00)
[2017-09-07] MEDS: NACHLORIDE 0.45% 1,000 ML IV SCH ×2 (00:58→16:02)
[2017-09-07 04:36] LABS: Absolute Lymphocytes (CBC) 1.7 K/uL (0.7-4.9); Absolute Monocytes 0.7 K/uL (0.1-1.3); Absolute Neutrophil 4.2 K/uL (1.8-8.0); Basophils % 1.3 % (0-1.3); Eosinophils % 2.5 % (0-4.4); Lymphocytes % 24.1 % (15.3-44.8); MCH 30.5 pg (27.0-35.0); MCV 88.3 fL (80-100); MPV 7.5 fL (7.6-11.3); Monocytes % 10.8 % (3.3-12.3); RBC Red Blood Cell Count 4.42 M/uL (3.86-4.86)
[2017-09-07 05:21] LABS: Potassium 3.4 mEq/L (3.6-5.0)
[2017-09-07] MEDS: ASPIRIN 600 MG/SUPP PR SCH (09:33)
[2017-09-07] MEDS: ENOXAPARIN 30 MG/0.3 ML SQ SCH (09:34)
[2017-09-07] MEDS: DOCUSATE NA 100 MG CAP PO SCH ×2 (09:34→20:11)
[2017-09-07] MEDS: FAMOTIDINE 20 MG TAB PO SCH (09:34)
[2017-09-07] MEDS: Meropenem 500 MG in NA CHLORIDE 0.9% 100 ML IV SCH ×2 (09:35→20:11)
[2017-09-07] MEDS: CLOPIDOGREL 75 MG TABLET PO SCH (09:38)
--- NOTE | 2017-09-07 11:02 | P.PN ---
Subjective Date of Service: 09/07/17 Chief Complaint: AMS, UTI Subjective: Improving (Doing well no new complaints patient has a PICC line at waiting transfer to the detention) Review of Systems is unable to be obtained Physical Examination - Vital Signs Temperature: 97.0 F Blood Pressure: 158/78 Pulse: 56 Respirations: 16 Pulse Ox (%): 96 - Physical Exam General: Alert Respiratory: Clear to auscultation bilaterally Cardiovascular: No edema, Normal S1 S2 Gastrointestinal: Normal bowel sounds, Soft and benign Assessment & Plan - Problems (Diagnosis) (1) ESBL (extended spectrum beta-lactamase) producing bacteria infection Current Visit: Yes Status: Acute Plan: Patient is doing well no new complaints continue with IV antibiotics denies a PICC line awaiting arrangements for detention antibiotics was likely discharge tomorrow renal function is now back to normal (2) Hypertension Current Visit: Yes Status: Acute Plan: Resume all medications Qualifiers: Hypertension type: essential hypertension Qualified Code(s): I10 - Essential (primary) hypertension
--- NOTE | 2017-09-07 12:14 | RAD REPORT ---
EXAM DESCRIPTION: RAD - Chest Single View - 09/07/2017 12:16 am CLINICAL HISTORY: PICC line placement COMPARISON: None. FINDINGS: Portable chest was obtained following placement of a right upper extremity PICC line. The catheter tip is in the SVC.
[2017-09-07] MEDS: CARVEDILOL 6.25 MG TAB PO SCH ×2 (12:32→20:10)
[2017-09-07] MEDS: AMLODIPINE 10 MG TAB PO SCH (12:32)
[2017-09-07] MEDS ORDERED: POTASSIUM 25 MEQ EFFERV TAB PO ONE (15:00)
[2017-09-07 20:05] VITALS: O2SAT 94
[2017-09-07] MEDS ORDERED: CARVEDILOL 6.25 MG TAB PO SCH (21:00)
[2017-09-07] MEDS: HYDRALAZINE HCL 20 MG/ML VIAL IV PRN (23:54)
[2017-09-08 00:17] VITALS: BMI 18.8
[2017-09-08] MEDS: NACHLORIDE 0.45% 1,000 ML IV SCH (03:49)
[2017-09-08 05:31] LABS: Potassium 3.9 mEq/L (3.6-5.0)
[2017-09-08] MEDS: ASPIRIN 600 MG/SUPP PR SCH (09:00)
[2017-09-08] MEDS ORDERED: AMLODIPINE 10 MG TAB PO SCH (09:00)
[2017-09-08] MEDS: AMLODIPINE 10 MG TAB PO SCH (09:17)
[2017-09-08] MEDS: CARVEDILOL 6.25 MG TAB PO SCH (09:17)
[2017-09-08] MEDS: Meropenem 500 MG in NA CHLORIDE 0.9% 100 ML IV SCH (09:17)
[2017-09-08] MEDS: ENOXAPARIN 30 MG/0.3 ML SQ SCH (09:17)
[2017-09-08] MEDS: DOCUSATE NA 100 MG CAP PO SCH (09:17)
[2017-09-08] MEDS: FAMOTIDINE 20 MG TAB PO SCH (09:18)
[2017-09-08] MEDS: CLOPIDOGREL 75 MG TABLET PO SCH (09:18)
--- NOTE | 2017-09-08 10:23 | P.DS ---
Admission Date: 09/03/17 Discharge Date: 09/08/17 Primary Care Provider: Dr. Bragg Disposition: DC HOME/HOME HEALTH CARE Discharge Condition: GOOD Reason for Admission: AMS, UTI Consultations: Neurology-Dr. Huitron - Problems (1) Encephalopathy Current Visit: Yes Status: Acute (2) History of CVA with residual deficit Current Visit: Yes Status: Chronic (3) Atrial fibrillation Current Visit: Yes Status: Chronic Qualifiers: Atrial fibrillation type: chronic Qualified Code(s): I48.2 - Chronic atrial fibrillation (4) GERD (gastroesophageal reflux disease) Current Visit: Yes Status: Chronic Qualifiers: Esophagitis presence: esophagitis presence not specified Qualified Code(s) : K21.9 - Gastro-esophageal reflux disease without esophagitis (5) Dysphagia Current Visit: Yes Status: Chronic Qualifiers: Dysphagia type: pharyngeal phase Qualified Code(s): R13.13 - Dysphagia, pharyngeal phase (6) ESBL (extended spectrum beta-lactamase) producing bacteria infection Current Visit: Yes Status: Acute (7) Hypertension Current Visit: Yes Status: Chronic Qualifiers: Hypertension type: essential hypertension Qualified Code(s): I10 - Essential (primary) hypertension (8) UTI (urinary tract infection) Onset Date: 09/04/17 Current Visit: Yes Status: Acute Qualifiers: Urinary tract infection type: acute cystitis Hematuria presence: without hematuria Qualified Code(s): N30.00 - Acute cystitis without hematuria (9) Acute renal injury Current Visit: No Status: Acute (10) Altered mental status Onset Date: 06/24/16 Current Visit: No Status: Acute Qualifiers: Altered mental status type: unspecified Qualified Code(s): R41.82 - Altered mental status, unspecified (11) Constipation Onset Date: 09/30/16 Current Visit: No Status: Acute Qualifiers: Constipation type: unspecified constipation type Qualified Code(s): K59.00 - Constipation, unspecified (12) Hypertension Onset Date: 06/24/16 Current Visit: No Status: Chronic Qualifiers: Hypertension type: essential hypertension Qualified Code(s): I10 - Essential (primary) hypertension Brief History of Present Illness: 77-year-old female presented with altered mental status. Patient found to have UTI. Patient was admitted for treatment. Hospital Course: Patient found to have a UTI. Urine culture positive for E coli-ESBL. Patient will need long-term IV antibiotic therapy for total 14 days. Arrangements have been made so that the patient can continue with meropenem 500 mg IV twice daily for [address] days. [address] line in place. Patient will continue with UTI prevention. Recommendation is to recheck a cath urine culture in 10-14 days to monitor resolution. If negative PICC line can be removed at 14 days. Home health will be arranged to continue IV antibiotic therapy. Patient has hypertension. This remained stable during the course of his stay. Medications adjusted for better blood pressure control. Patient will continue with Norvasc 10 mg daily and carvedilol 6.25 mg 1 pill twice daily. Recommendation is to maintain blood pressures less 150/80. Further adjustment can be done by her PCP. Patient with history of CVA with residual aphasia. Patient will continue with Plavix 75 mg daily. Patient has GERD. Patient will continue with Pepcid 20 mg 1 pill twice daily. Patient with chronic constipation. Patient will continue with docusate. Patient with history of atrial fibrillation. Currently stable this time. Patient not on chronic anti coagulation therapy due to risk of bleeding and fall. Recommendation to recheck lab-CBC and BMP in 1 week to monitor progress. Vital Signs/Physical Exam: Temp Pulse Resp BP Pulse Ox 97.8 F 63 18 158/78 H 95 09/08/17 08:00 09/08/17 08:00 09/08/17 08:00 09/08/17 08:00 09/08/17 08:00 General: Alert, In no apparent distress, Cooperative HEENT: Atraumatic Neck: Supple Respiratory: Clear to auscultation bilaterally, Normal air movement Cardiovascular: Normal pulses, Regular rate/rhythm Gastrointestinal: Normal bowel sounds, Soft and benign, Non-distended Musculoskeletal: No tenderness, No warmth Neurological: Abnormal strength (Patient with aphasia.) Laboratory Data at Discharge: WBC 6.9 K/uL (4.3-10.9) D 09/07/17 04:25 Hgb 13.5 g/dL (12.0-15.0) 09/07/17 04:25 Hct 39.0 % (36.0-45.0) 09/07/17 04:25 Plt Count 291 K/uL (152-406) 09/07/17 04:25 PT 11.3 SECONDS (9.5-12.5) 09/03/17 18:43 INR 0.96 09/03/17 18:43 APTT 30.7 SECONDS (24.3-36.9) 09/03/17 18:43 Sodium 136 mEq/L (135-145) 09/08/17 04:47 Potassium 3.9 mEq/L (3.6-5.0) 09/08/17 04:47 BUN 14 mg/dL (6-20) 09/08/17 04:47 Creatinine 0.90 mg/dL (0.44-1.00) 09/08/17 04:47 Glucose 98 mg/dL (65-120) 09/08/17 04:47 Magnesium 2.0 mg/dL (1.8-2.5) 09/03/17 18:43 Total Bilirubin 0.5 mg/dL (0.3-1.2) 09/03/17 18:43 AST 21 IU/L (10-42) 09/03/17 18:43 ALT 13 IU/L (10-60) 09/03/17 18:43 Alkaline Phosphatase 86 IU/L (42-121) 09/03/17 18:43 Home Medications: Amlodipine [Norvasc*] 10 mg PO DAILY #30 tab 07/27/16 Clopidogrel Bisulfate [Plavix*] 75 mg PO DAILY #30 tablet 07/27/16 Famotidine [Pepcid] 20 mg PO BID #60 tablet 07/27/16 Carvedilol [Coreg*] 6.25 mg PO BID #60 tab 10/03/16 Docusate [Colace Cap*] 100 mg PO BID #60 cap 10/03/16 Patient Discharge Instructions: 1. Patient will need to follow up with PCP within one week to follow up this hospitalization and continue her care. 2. Patient found to have a UTI. Urine culture positive for E coli-ESBL. Patient will need long-term IV antibiotic therapy for total 14 days. Arrangements have been made so that the patient can continue with meropenem 500 mg IV twice daily for 14 days. [address] line in place. Patient will continue with UTI prevention. Recommendation is to recheck a cath urine culture in 10-14 days to monitor resolution. If negative PICC line can be removed at 14 days. Home health will be arranged to continue IV antibiotic therapy. 3. Patient has hypertension. Patient will continue with Norvasc 10 mg daily and carvedilol 6.25 mg 1 pill twice daily. Recommendation is to maintain blood pressures less 150/80. Further adjustment can be done by her PCP. 4. Patient with history of CVA with residual aphasia. Patient will continue with Plavix 75 mg daily. 5. Patient has GERD. Patient will continue with Pepcid 20 mg 1 pill twice daily. 6. Patient with chronic constipation. Patient will continue with docusate. 7. Patient with history of atrial fibrillation. Currently stable this time. Patient not on chronic anti coagulation therapy due to risk of bleeding and fall. 8. Recommendation to recheck lab-CBC and BMP in 1 week to monitor progress. Diet: Pureed Activity: Fall precautions Time spent managing pt's care (in minutes): 55
[2017-09-08 11:46] VITALS: BP 132/64; TEMP 98.8
== END 2017-09-08 14:46 | disposition home health service (06) | DRG 689 ==
LOC: ER 17:54 → ERHOLD 20:36 → 2ND 21:36
PROVIDERS: ADMIT Internal Medicine; ATTEND Family Medicine
PROC: 02HV33Z Insertion of Infusion Device into Superior Vena Cava, Percutaneous Approach (ICD-10-PCS; principal; 2017-09-06)
DX: N30.00 Acute cystitis without hematuria (principal); G92 Toxic encephalopathy; N17.9 Acute kidney failure, unspecified; I69.351 Hemiplegia and hemiparesis following cerebral infarction affecting right dominant side; E44.0 Moderate protein-calorie malnutrition; Z68.1 Body mass index [BMI] 19.9 or less, adult; I48.2 Chronic atrial fibrillation; K21.9 Gastro-esophageal reflux disease without esophagitis; I69.391 Dysphagia following cerebral infarction; R13.13 Dysphagia, pharyngeal phase; Z16.12 Extended spectrum beta lactamase (ESBL) resistance; I10 Essential (primary) hypertension; K59.00 Constipation, unspecified; B96.20 Unspecified Escherichia coli [E. coli] as the cause of diseases classified elsewhere; I69.320 Aphasia following cerebral infarction; Z79.02 Long term (current) use of antithrombotics/antiplatelets; F01.50 Vascular dementia, unspecified severity, without behavioral disturbance, psychotic disturbance, mood disturbance, and anxiety; E86.0 Dehydration; R53.1 Weakness; N18.2 Chronic kidney disease, stage 2 (mild); I12.9 Hypertensive chronic kidney disease with stage 1 through stage 4 chronic kidney disease, or unspecified chronic kidney disease
CPT/HCPCS: 36415; 51702; 70450; 71045; 74230; 80048; 80076; 81003; 81015; 82962; 83735; 85025; 85610; 85730; 87077; 87086; 87088; 87186; 93005; 96374; 97163; 99285; J0360; J0696; J1650

== ENCOUNTER 2017-09-11 18:24 | Inpatient (IN) | payer OTHER ==
[2017-09-11] MEDS: MEROPENEM 500 MG IV SCH ×2 (08:00→20:00)
--- NOTE | 2017-09-11 19:12 | RAD REPORT ---
EXAM DESCRIPTION: RAD - Chest Single View - 09/11/2017 6:52 pm CLINICAL HISTORY: Abnormal breast sounds, weakness, shortness of breath COMPARISON: Portable chest September 07 TECHNIQUE: AP portable chest image was obtained 1837 hours . FINDINGS: Fibrotic lung changes are present similar to the comparison. PICC line remains in place. N o new failure, infiltrate or mass. Heart and vasculature are normal. No measurable pleural effusion a nd no pneumothorax. No gross bony abnormality seen. No acute aortic findings suspected. IMPRESSION: Baseline fibrotic lung pattern similar to comparison. No new or progressive finding since September 07.
[2017-09-11 19:29] LABS: Absolute Lymphocytes (CBC) 2.4 K/uL (0.7-4.9); Absolute Monocytes 1.4 K/uL (0.1-1.3); Absolute Neutrophil 6.1 K/uL (1.8-8.0); Basophils % 1.4 % (0-1.3); Eosinophils % 2.7 % (0-4.4); Hematocrit 41.5 % (36.0-45.0); MCH 29.1 pg (27.0-35.0); MCV 90.3 fL (80-100); MPV 7.6 fL (7.6-11.3); Monocytes % 13.6 % (3.3-12.3); RBC Red Blood Cell Count 4.59 M/uL (3.86-4.86)
[2017-09-11 19:50] LABS: ALT/SGPT 32 U/L (12-78); AST/SGOT 29 U/L (15-37); Albumin 3.2 g/dL (3.4-5.0); Alkaline Phosphatase 89 U/L (45-117); BUN Blood Urea Nitrogen 23 mg/dL (7-18); Bicarbonate 30 mmol/L (21-32); Bilirubin Direct 0.1 mg/dL (0-0.2); Bilirubin Total 0.5 mg/dL (0.2-1.0); Glucose Level 104 mg/dL (74-106); NT PRO-BNP 3002 pg/mL (<450); Potassium 3.9 mmol/L (3.5-5.1); Protein, Total 7.1 g/dL (6.4-8.2); Sodium Level 136 mmol/L (136-145)
[2017-09-11 20:57] LABS: Urine Blood NEGATIVE (NEG); Urine Glucose NEGATIVE (NEG); Urine Protein NEGATIVE (NEG); Urine pH 6.5 (5.0-7.0)
--- NOTE | 2017-09-11 21:16 | ER ---
Nurse's Notes [facility] Name: Yvette Ordaz Age: 77 yrs Sex: Female : 1940 Arrival Date: 09/11/2017 Time: 18:26 Bed 6 Private MD: Haris Bragg E Diagnosis: Weakness Presentation: 09/11 18:30 Presenting complaint: daughter reports that patient's strength has not improved since ss her recent discharge from hospital on 09/08. Daughter also reports that patient has had increased swelling to bilateral hands and feet. Transition of care: patient was not received from another setting of care. Onset of symptoms is unknown. Risk Assessment: Do you want to hurt yourself or someone else? Patient reports no desire to harm self or others. Initial Sepsis Screen: Does the patient have a suspected source of infection? Yes: Dysuria/Frequency/Urgency/UTI. Initial Sepsis Screen: Does the patient meet any 2 criteria? No. Patient's initial sepsis screen is negative. Care prior to arrival: None. 18:30 Method Of Arrival: Wheelchair ss 18:30 Acuity: ANN 3 ss Stroke Activation: Symptom onset > 6 hours Physician: Stroke Attending; Name: ; Notified At: ; Arrived At: Physician: Chief Stroke Resident; Name: ; Notified At: ; Arrived At: Physician: Stroke Resident; Name: ; Notified At: ; Arrived At: Physician: ED Attending; Name: ; Notified At: ; Arrived At: Physician: ED Resident; Name: ; Notified At: ; Arrived At: Historical: - Allergies: 19:37 No Known Allergies; lp1 - Home Meds: 21:31 meropenem-0.9% sodium chloride 500mg/100ml intravenous pgbk twice a day [Active]; lp1 amlodipine 10 mg tab 1 tab once daily for Hypertension [Active]; hydralazine 25 mg Oral tab 1 tab three times a day for Hypertension [Active]; clopidogrel 75 mg Oral tab 1 tab once daily [Active]; famotidine 20 mg Oral tab 1 tab 2 times per day [Active]; carvedilol 6.25 mg oral tab 1 tab 2 times per day [Active]; - PMHx: 18:37 COPD; CVA; Hypertension; ss - Immunization history:: Adult Immunizations up to date. - Social history:: Smoking status: . - Ebola Screening: : Patient denies exposure to infectious person Patient denies travel to an Ebola-affected area in the 21 days before illness onset. Screenin:41 Abuse screen: Denies threats or abuse. Denies injuries from another. Nutritional lp1 screening: No deficits noted. Tuberculosis screening: No symptoms or risk factors identified. Fall Risk Total Giles Fall Scale indicates High Risk Score (45 or more points). Fall prevention measures have been instituted. Side Rails Up X 2 Family Present and informed to notify staff if the need to leave the bedside As available patient and family educated on Fall Prevention Program and Strategies. Assessment: 19:39 General: Appears in no apparent distress. Behavior is calm. Pain: Unable to use pain lp1 scale. Does not appear to understand pain scale. Neuro: Level of Consciousness is awake, Oriented to person, Per family, patient does not talk, patient noted to mumble. Cardiovascular: Patient's skin is warm and dry. Rhythm is sinus rhythm. Respiratory: Airway is patent Trachea midline Respiratory effort is even, Respiratory pattern is regular, Sputum is unknown Breath sounds are clear bilaterally. Parent/caregiver reports the patient having cough that is. GI: Abdomen is non-distended. : No signs and/or symptoms were reported regarding the genitourinary system. EENT: No signs and/or symptoms were reported regarding the EENT system. Derm: Skin is fragile, is thin, with poor turgor Skin is dry, Skin is normal. Musculoskeletal: limited mobility of neck noted. 20:45 Reassessment: Patient resting, eyes closed, respirations unlabored; family at bedside. lp1 21:19 Reassessment: Per Provider, Patient administered home med of Meropenem 500mg IV. lp1 22:20 Reassessment: Patient appears in no apparent distress at this time. No changes from lp1 previously documented assessment. Patient and/or family updated on plan of care and expected duration. Pain level reassessed. Vital Signs: 18:37 BP 163 / 95; Pulse 86; Resp 16; Temp 99.1; Pulse Ox 95% on R/A; ss 19:38 BP 167 / 85; Pulse 75; Resp 20; Pulse Ox 97% on R/A; lp1 20:30 BP 150 / 61; Pulse 69; Resp 17; Pulse Ox 97% on R/A; lp1 21:31 BP 143 / 93; Pulse 62; Resp 17; Pulse Ox 97% on R/A; lp1 22:21 BP 152 / 72; Pulse 62; Resp 20; Pulse Ox 93% on R/A; lp1 ED Course: 18:26 Patient arrived in ED. as 18:26 Haris Bragg MD is Private Physician. as 18:34 Rahul Carrera PA is PHCP. jr8 18:34 Garrett Galan MD is Attending Physician. jr8 18:35 Cora Suarez RN is Primary Nurse. ph 18:37 Triage completed. ss 18:37 Arm band placed on right wrist. ss 18:49 X-ray completed. Patient tolerated procedure poorly. jr1 18:49 XRAY Chest (1 view) In Process Unspecified. EDMS 19:20 IV is patent, with good blood return, PICC line to right upper arm. lp1 19:41 Patient has correct armband on for positive identification. Placed in gown. Bed in low lp1 position. Side rails up X2. supervisor hand silvering on. Pulse ox on. NIBP on. 20:50 Urine collected: straight cath specimen, clear, Amount Returned: 75mL. Straight cath ks6 inserted, using sterile technique, 16 Fr. Specimen obtained. Returned clear yellow urine. Patient tolerated well. 21:15 Nima Burnett MD is Hospitalizing Provider. jr8 21:45 No provider procedures requiring assistance completed. Patient admitted, IV remains in lp1 place. 22:07 Primary Nurse role handed off by Cora Suarez RN rg2 22:20 Yana Curran, JERRI is Primary Nurse. lp1 Administered Medications: No medications were administered Point of Care Testing: Blood Glucose: 18:37 Blood Glucose: 102 mg/dL; ss Ranges: Outcome: 21:16 Decision to Hospitalize by Provider. jr8 21:45 Condition: stable lp1 21:45 Instructed on the need for admit, to family 22:21 Admitted to Tele accompanied by tech, via stretcher, room 431, with chart, Report lp1 called to JERRI Mejia 22:29 Patient left the ED. lp1 Signatures: Dispatcher [employer] EDMS Rey Terrell rg2 Fanta Phan jr1 Bekah Hickman Shelby, RN RN Yana Curran RN RN lp1 Rahul Carrera PA PA jr8 Cora Suarez, RN RN ph Min Duarte ks6
--- NOTE | 2017-09-11 21:16 | EDPHYS ---
Physician Documentation [facility] Name: Yvette Ordaz Age: 77 yrs Sex: Female : 1940 Arrival Date: 09/11/2017 Time: 18:26 Bed 6 Private MD: Haris Bragg E ED Physician Garrett Galan HPI: 09/11 18:45 This 77 yrs old Female presents to ER via Wheelchair with complaints of jr8 Weakness. 18:45 Family stated that patient was recently released from hospital after having weakness jr8 and UTI. Stated that they wanted to send her to rehab facility but opted not to go. Came back to ED because she is weak again and noticed that her hands and feet are swelling . 18:53 Severity of symptoms: At their worst the symptoms were moderate in the emergency jr8 department the symptoms are unchanged. The patient has not experienced similar symptoms in the past. The patient has not recently seen a physician. Historical: - Allergies: 19:37 No Known Allergies; lp1 - Home Meds: 21:31 meropenem-0.9% sodium chloride 500mg/100ml intravenous pgbk twice a day [Active]; lp1 amlodipine 10 mg tab 1 tab once daily for Hypertension [Active]; hydralazine 25 mg Oral tab 1 tab three times a day for Hypertension [Active]; clopidogrel 75 mg Oral tab 1 tab once daily [Active]; famotidine 20 mg Oral tab 1 tab 2 times per day [Active]; carvedilol 6.25 mg oral tab 1 tab 2 times per day [Active]; - PMHx: 18:37 COPD; CVA; Hypertension; ss - Immunization history:: Adult Immunizations up to date. - Social history:: Smoking status: . - Ebola Screening: : Patient denies exposure to infectious person Patient denies travel to an Ebola-affected area in the 21 days before illness onset. ROS: 18:53 Eyes: Negative for injury, pain, redness, and discharge, ENT: Negative for injury, jr8 pain, and discharge, Neck: Negative for injury, pain, and swelling, Respiratory: Negative for shortness of breath, cough, wheezing, and pleuritic chest pain, Abdomen/GI: Negative for abdominal pain, nausea, vomiting, diarrhea, and constipation, Back: Negative for injury and pain, MS/Extremity: Negative for injury and deformity, Skin: Negative for injury, rash, and discoloration. 18:53 Cardiovascular: Positive for edema, Negative for orthopnea. 18:53 Neuro: Positive for weakness. Exam: 18:53 Eyes: Pupils equal round and reactive to light, extra-ocular motions intact. Lids and jr8 lashes normal. Conjunctiva and sclera are non-icteric and not injected. Cornea within normal limits. Periorbital areas with no swelling, redness, or edema. ENT: Nares patent. No nasal discharge, no septal abnormalities noted. Tympanic membranes are normal and external auditory canals are clear. Oropharynx with no redness, swelling, or masses, exudates, or evidence of obstruction, uvula midline. Mucous membranes moist. Neck: Trachea midline, no thyromegaly or masses palpated, and no cervical lymphadenopathy. Supple, full range of motion without nuchal rigidity, or vertebral point tenderness. No Meningismus. Respiratory: Lungs have equal breath sounds bilaterally, clear to auscultation and percussion. No rales, rhonchi or wheezes noted. No increased work of breathing, no retractions or nasal flaring. Abdomen/GI: Soft, non-tender, with normal bowel sounds. No distension or tympany. No guarding or rebound. No evidence of tenderness throughout. Back: No spinal tenderness. No costovertebral tenderness. Full range of motion. Skin: Warm, dry with normal turgor. Normal color with no rashes, no lesions, and no evidence of cellulitis. MS/ Extremity: Pulses equal, no cyanosis. Neurovascular intact. Full, normal range of motion. Neuro: Awake and alert. Moves all extremities. Sensory grossly intact. Unable to fully assess due to baseline mental status 18:53 Cardiovascular: Rate: normal, Rhythm: regular, Pulses: Pulses are 2+ in right radial artery and left radial artery. Heart sounds: normal, normal S1and S2, no S3 or S4, no murmur, no rub, no gallop, Edema: 1+ edema to level of right hand and left hand, 2+ edema to level of left toes and right toes, JVD: is not appreciated. Vital Signs: 18:37 BP 163 / 95; Pulse 86; Resp 16; Temp 99.1; Pulse Ox 95% on R/A; ss 19:38 BP 167 / 85; Pulse 75; Resp 20; Pulse Ox 97% on R/A; lp1 20:30 BP 150 / 61; Pulse 69; Resp 17; Pulse Ox 97% on R/A; lp1 21:31 BP 143 / 93; Pulse 62; Resp 17; Pulse Ox 97% on R/A; lp1 22:21 BP 152 / 72; Pulse 62; Resp 20; Pulse Ox 93% on R/A; lp1 MDM: 18:34 Patient medically screened. [facility] 21:15 Data reviewed: vital signs, nurses notes, lab test result(s), EKG, radiologic studies, jr8 plain films, and as a result, I will admit patient. Data interpreted: Pulse oximetry: on room air is 97 %. Interpretation: normal. Counseling: I had a detailed discussion with the patient and/or guardian regarding: the historical points, exam findings, and any diagnostic results supporting the discharge/admit diagnosis, lab results, radiology results, the need for further work-up and treatment in the hospital. Physician consultation: Nima Burnett MD was called at 21:15, was contacted at 21:15, regarding admission, to the medical/surgical unit. consult, patient's condition, and will see patient. 09/11 18:35 Order name: Basic Metabolic Panel; Complete Time: 20:05 [facility] 09/11 18:35 Order name: CBC with Diff; Complete Time: 19:32 [facility] 09/11 18:35 Order name: Creatinine for Radiology; Complete Time: 19:48 [facility] 09/11 18:35 Order name: Hepatic Function; Complete Time: 20:05 [facility] 09/11 18:35 Order name: BNP; Complete Time: 20:05 [facility] 09/11 18:40 Order name: glucometer results - FOR PT WITH NO ID; Complete Time: 18:57 09/11 18:35 Order name: IV Saline Lock; Complete Time: 19:42 [facility] 09/11 18:35 Order name: Labs collected and sent; Complete Time: 19:42 [facility] 09/11 18:35 Order name: Urine Dipstick-Ancillary (obtain specimen); Complete Time: 20:52 [facility] 09/11 18:35 Order name: XRAY Chest (1 view); Complete Time: 19:13 [facility] 09/11 20:07 Order name: Troponin (emerg Dept Use Only); Complete Time: 21:00 [facility] 09/11 20:55 Order name: Urine Dipstick--Ancillary (enter results); Complete Time: 21:00 rg2 09/11 21:25 Order name: Social Service Consult EDMS Administered Medications: No medications were administered Point of Care Testing: Blood Glucose: 18:37 Blood Glucose: 102 mg/dL; Ranges: Critical Glucose Levels:Adult <50 mg/dl or >400 mg/dl <40 mg/dl or >180 mg/dl Disposition: 09/12 07:10 Co-signature as Attending Physician, Garrett Galan MD. rn Disposition: 09/11/17 21:16 Hospitalization ordered by Nima Burnett for Observation. Preliminary diagnosis is Weakness. - Bed requested for Telemetry/MedSurg (observation). - Status is Observation. lp1 - Condition is Stable. - Problem is new. - Symptoms are unchanged. UTI on Admission? No Signatures: Dispatcher [facility] Zully Steele RN RN Garrett Galan MD MD rn Smirch, Shelby, RN RN Yana Curran RN RN lp1 Rahul Carrera PA PA jr8 Corrections: (The following items were deleted from the chart) 09/11 21:33 21:16 Hospitalization Ordered by Nima Burnett MD for Observation. Preliminary diagnosis is Weakness. Bed requested for Telemetry/MedSurg (observation). Status is Observation. Condition is Stable. Problem is new. Symptoms are unchanged. UTI on Admission? No. jr8 22:29 21:33 09/11/2017 21:16 Hospitalization Ordered by Nima Burnett MD for Observation. lp1 Preliminary diagnosis is Weakness. Bed requested for Telemetry/MedSurg (observation). Status is Observation. Condition is Stable. Problem is new. Symptoms are unchanged. UTI on Admission? No. mw
[2017-09-11] MEDS ORDERED: ONDANSETRON 4 MG/2 ML VIAL IV PRN (22:03)
[2017-09-11] MEDS ORDERED: ACETAMINOPHEN 500 MG TAB PO PRN (22:03)
[2017-09-11] MEDS ORDERED: MORPHINE 2 MG/ML SYR IV PRN (22:03)
[2017-09-11] MEDS ORDERED: NA CHLORIDE 0.9% 1,000 ML IV SCH (23:00)
[2017-09-12 05:59] LABS: Bilirubin Total 0.6 mg/dL (0.2-1.0); Potassium 3.6 mmol/L (3.5-5.1); Protein, Total 6.4 g/dL (6.4-8.2)
[2017-09-12 06:22] LABS: Folic Acid, (Folate) 12.2 ng/mL (3.1-17.5); Thyroid Stimulating Hormone 1.16 uIU/mL (0.36-3.74)
[2017-09-12 06:24] LABS: Absolute Lymphocytes (CBC) 1.6 K/uL (0.7-4.9); Absolute Neutrophil 4.8 K/uL (1.8-8.0); Basophils % 1.3 % (0-1.3); Eosinophils % 3.6 % (0-4.4); Hematocrit 38.3 % (36.0-45.0); Lymphocytes % 20.1 % (15.3-44.8); MCH 29.6 pg (27.0-35.0); MCV 90.5 fL (80-100); MPV 7.9 fL (7.6-11.3); Monocytes % 13.3 % (3.3-12.3); RBC Red Blood Cell Count 4.23 M/uL (3.86-4.86)
[2017-09-12] MEDS ORDERED: MORPHINE 4 MG/ML SYR IV PRN (07:10)
--- NOTE | 2017-09-12 07:55 | P.PN ---
Subjective Date of Service: 09/12/17 Chief Complaint: Weakness Subjective: Other (Spoke to daughter. Patient has been treated at home for ESBL on Merrem. Since her last hospitalization she has been weak. She has had poor oral intake.) Physical Examination - Vital Signs Temperature: 97.4 F Blood Pressure: 130/68 Pulse: 80 Respirations: 17 Pulse Ox (%): 96 - Physical Exam General: Alert, Other (aphasia) HEENT: Atraumatic, Other (dry mucous membranes) Neck: Supple Respiratory: Clear to auscultation bilaterally, Normal air movement Cardiovascular: Normal pulses, Regular rate/rhythm Gastrointestinal: Normal bowel sounds, Soft and benign, Non-distended, No tenderness, No masses, No rebound, No guarding Musculoskeletal: No erythema, No tenderness, No warmth Integumentary: No tenderness/swelling, No erythema, No warmth, No cyanosis Neurological: Dementia - Studies Laboratory Data (last 24 hrs) 09/11/17 19:20: Creatinine 1.10 09/11/17 19:20: WBC 10.3 D, Hgb 13.3, Hct 41.5, Plt Count 302 09/11/17 19:20: Sodium 136, Potassium 3.9, BUN 23 H, Creatinine 1.10, Glucose 104, Total Bilirubin 0.5, AST 29, ALT 32, Alkaline Phosphatase 89 Medications List Reviewed: Yes Assessment & Plan - Problems (Diagnosis) (1) Weakness Onset Date: 09/12/17 Current Visit: Yes Status: Acute Plan: Etiology unknown. Maybe related to poor intake. Continue treatment of UTI-ESBL. Will check MRI brain to evaluate for CVA. She has a history of CVA with residual aphasia. She has vascular dementia. Will consult Neurology to further address as well. Speech, physical therapy ordered along with [employer] Q[employer] Lab Technician. May need MBS to reassess. Discussed with daughter, she desires SNF placement. (2) ESBL (extended spectrum beta-lactamase) producing bacteria infection Current Visit: No Status: Acute Plan: Continue with Merrem. Will need total of 14 days. Will verify how many days needed left. (3) UTI (urinary tract infection) Onset Date: 09/04/17 Current Visit: No Status: Acute Plan: Continue as above Qualifiers: Urinary tract infection type: site unspecified Hematuria presence: without hematuria Qualified Code(s): N39.0 - Urinary tract infection, site not specified (4) Atrial fibrillation Current Visit: No Status: Chronic Plan: Not on chronic anticoagulation due to risk of falls. Stable. Will continue with Plavix. Qualifiers: Atrial fibrillation type: chronic (5) COPD (chronic obstructive pulmonary disease) Onset Date: 06/24/16 Current Visit: No Status: Chronic Plan: Continue with medication Qualifiers: COPD type: chronic bronchitis Chronic bronchitis type: unspecified Qualified Code(s): J42 - Unspecified chronic bronchitis (6) Dysphagia Current Visit: No Status: Chronic Plan: Will have this reassessed. Qualifiers: (7) GERD (gastroesophageal reflux disease) Current Visit: No Status: Chronic Plan: Continue with medication Qualifiers: (8) History of CVA with residual deficit Current Visit: No Status: Chronic Plan: Continue as above. Will check MRI stroke protocol. (9) Hypertension Onset Date: 06/24/16 Current Visit: No Status: Chronic Plan: Will continue with medication. Qualifiers: (10) Moderate protein-calorie malnutrition Onset Date: 09/04/17 Current Visit: No Status: Chronic Plan: Will have Dietary evaluate and make recommendation. (11) Dementia Current Visit: Yes Status: Chronic Plan: As reported by Neurology on last visit. Qualifiers: Dementia type: vascular dementia Dementia behavioral disturbance: without behavioral disturbance Qualified Code(s): F01.50 - Vascular dementia without behavioral disturbance (12) Edema Current Visit: Yes Status: Acute Plan: Will check ECHO. Suspect CHF, diastolic dysfunction. Qualifiers: Edema type: unspecified Qualified Code(s): R60.9 - Edema, unspecified (13) B12 deficiency Current Visit: Yes Status: Acute Plan: B12 def noted. Will start B12 supplementation Discharge Plan: Other (SNF) Plan to discharge in: 24 Hours Time Spent Managing Pts Care (In Minutes): 55
[2017-09-12] MEDS ORDERED: ALBUTEROL 2.5 MG/3 ML NEB SOL NEB PRN (08:01)
[2017-09-12] MEDS: CLOPIDOGREL 75 MG TABLET PO SCH (09:00)
[2017-09-12] MEDS ORDERED: HYDRALAZINE HCL 25 MG TABLET PO SCH (09:00)
[2017-09-12] MEDS ORDERED: AMLODIPINE 10 MG TAB PO SCH (09:00)
[2017-09-12] MEDS ORDERED: CYANOCOBALAMIN 1000MCG/ML INJ IM SCH (09:00)
[2017-09-12] MEDS: FAMOTIDINE 20 MG TAB PO SCH ×2 (09:00→20:14)
[2017-09-12] MEDS ORDERED: CARVEDILOL 6.25 MG TAB PO SCH (09:00)
[2017-09-12] MEDS: Meropenem 500 MG in NA CHLORIDE 0.9% 100 ML IV SCH ×2 (09:15→20:15)
[2017-09-12] MEDS: NA CHLORIDE 0.9% 1,000 ML IV SCH ×2 (09:18→22:20)
[2017-09-12] MEDS ORDERED: HYDRALAZINE HCL 20 MG/ML VIAL IV PRN (09:28)
--- NOTE | 2017-09-12 12:26 | ECHO ---
HEIGHT: 4 ft 11 in WEIGHT: 94 lb 4.8 oz DATE OF STUDY: 09/12/[address]: Delfino Perez DO 2-DIMENSIONAL: YES M.MODE: YES DOPPLER: YES COLOR FLOW: YES TDS: YES PORTABLE: NO DEFINITY: NO BUBBLE STUDY: NO DIAGNOSIS: WEAKNESS CARDIAC HISTORY: CATHERIZATION: NO SURGERY: NO PROSTHETIC VALVE: NO PACEMAKER: NO MEASUREMENTS (cm) DIASTOLIC (NORMALS) SYSTOLIC (NORMALS) IVSd 1.6 (0.6-1.2) LA Diam 3.8 (1.9-4.0) LVEF 77% LVIDd 3.5 (3.5-5.7) LVIDs 1.9 (2.0-3.5) %FS 45% LVPWd 1.6 (0.6-1.2) Ao Diam (2.0-3.7) 2 DIMENSIONAL ASSESSMENT: RIGHT ATRIUM: NORMAL LEFT ATRIUM: NORMAL RIGHT VENTRICLE: NORMAL LEFT VENTRICLE: NORMAL TRICUSPID VALVE: NORMAL MITRAL VALVE: MITRAL ANNULAR CALCIFICATION PULMONIC VALVE: NORMAL AORTIC VALVE: SCLEROSIS PERICARDIAL EFFUSION: NONE AORTIC ROOT: NORMAL LEFT VENTRICULAR WALL MOTION: NORMAL. DOPPLER/COLOR FLOW: MILD TRICUSPID REGURGITATION NORMAL RIGHT VENTRICULAR SYSTOLIC PRESSURE. COMMENTS: TECHNICALLY DIFFICULT STUDY. NORMAL LEFT VENTRICULAR SIZE AND EJECTION FRACTION. AORTIC SCLEROSIS. MITRAL ANNULAR CALCIFICATION. MILD TRICUSPID REGURGITATION. NORMAL RIGHT VENTRICULAR SYSTOLIC PRESSURE. TECHNOLOGIST: HERIBERTO ROLLINS
--- NOTE | 2017-09-12 15:19 | RAD REPORT ---
EXAM DESCRIPTION: MRI - Stroke Protocol - 09/12/2017 2:55 pm CLINICAL HISTORY: Aphasia/CVA. COMPARISON: September 03, 2017. Head ct TECHNIQUE: Axial, sagittal and coronal magnetic resonance images of the brain were obtained. 12 mL M ultiHance was administered intravenously . Magnetic resonance angiography of the head and neck was pe rformed. Source images were reviewed and reconstructed at 360 degrees rotation. FINDINGS: Diffusion weighted/ADC mapping demonstrates a 5 mm area of abnormal signal within the righ t basal ganglia compatible with an acute infarction. Moderate to marked signal within periventricular, deep and subcortical white matter likely represents ischemic changes secondary to small vessel disease. The ventricles are normal in caliber. An extra-axial fluid collection is not noted. Fluid within the sinuses/mastoids is not seen. origin of the posterior cerebral artery is noted. Mild areas of narrowing involve the anterior, middle and posterior cerebral arteries. An aneurysm is not seen. An acute occlusion is not noted. High-grade stenosis involves the proximal left external carotid artery. Mild plaque is present within the common and internal carotid arteries. The vertebral arteries are tortuous without significant stenosis. IMPRESSION: 1. A 5 mm acute infarct of the right basal ganglia. 2. No acute abnormality involving the arteries of the head and neck. The exam was discussed with Dr. Perez at 3 p.m. September 12, 2017
--- NOTE | 2017-09-12 15:43 | CON ---
Reason For Consultation: Consultation called because of aphasia and possibility of a stroke. History Of Present Illness: Ms. Ordaz is a 77-year-old patient who was just in the hospital about 10 d ays ago with extended-spectrum beta-lactamase urinary tract infection, for which she is on Merrem. S he was discharged home just on the . Today is the . She was discharged with farzana nued antibiotics. The patient's and daughter, who are in the room indicated that since going home, she was actually just staying in bed, did not get out of bed, had to be assisted to even lift her arms up and was not eating. She comes in and was found to be moderately dehydrated. Her creatin ine around 1.2. She was given IV fluids and she has brain MRI pending to rule out a new stroke. The family did indicate that at times she seemed to refuse to eat except only certain things, which she appeared to like, which may be a chicken soup, which the daughter said she would fix for her, but she would only eat about half the amount that she was given and only 1 meal a day. She did not appear t o have any focal changes in terms of face, arm, or leg weakness, any facial asymmetry prior to and si nce being in the hospital. Past Medical History: Chronic obstructive pulmonary disease, chronic stroke, and hypertension. Allergies: NO KNOWN DRUG ALLERGIES. Medications: Meropenem 500 mg twice daily, amlodipine 10 mg daily, hydralazine 25 mg 3 times a day, Plavix 75 mg daily, Pepcid 20 mg twice daily, and carvedilol 6.25 mg twice daily. Family History: Noncontributory. Review of Systems: The patient's family indicated, as noted she has been not wanting to eat, poorly interactive, diffuse ly weak in all extremities without any focal changes. They deny any fevers, any chills, any sweats. No reports of myalgias, arthralgias. No headache. No rash. No psychiatric issues. Physical Examination: Vital Signs: Blood pressure 158/70, pulse 73, respiratory rate 18, and temperature 98.8. Max blood p ressure 207/89. Her oxygen saturation 96%. Again, temperature 97.8. General: Ms. Ordaz is resting in bed, family at the bedside. She is alert. She does track when asked questions, she would tend to blow bubble like stuff from her mouth, but does not verbalize answers, but again will track appropriately. HEENT: She is normocephalic, atraumatic. Sclerae appear anicteric. She has somewhat dry oropharynx . Chest: Decreased breath sounds bilaterally. Abdomen: Soft. Extremities: No significant edema or cyanosis in the extremities. Neurologic: Again alert and does not answer questions when asked, but tracks appropriately. Opened her mouth mildly, but again no verbalization. Her face appears symmetric. Equal movements noted in the arms. Legs held equally in position, but without any asymmetric strength changes obvious just fr om observation. The patient to stimulation move them equally well. Unable to assess coordination an d gait. Laboratory Studies: White blood cell count 7.8, hemoglobin 12.5, hematocrit 38.3, and platelets 276. ESR 31. INR 0.96. Chemistries; sodium 139, potassium 3.4, chloride 103, carbon dioxide 29, BUN 14 , creatinine 0.9, and calcium 8.6. Repeat urinalysis is unremarkable. Echocardiogram shows ejection fraction 77%, aortic sclerosis, mitral annular calcification, and tricuspid regurgitation. Chest x-r ay from the shows baseline fibrotic lungs. The patient does have a PICC line. Assessment: Ms. Ordaz is a 77-year-old patient with a baseline dementia on top of a recent toxic encep halopathy related to urinary tract infection with beta-lactamase extended-spectrum bacteria, for whic h she is on meropenem. She has been home for about 4 days and has become more debilitated and she pepe s just remained in bed the entire time and has poor oral intake and poor hydration. MRI of the brain to be done to rule out presence of an acute stroke. She does not have a stroke by exam, however, ex am is limited because of patient's lack of cooperation. Plan: 1.Followup brain MRI. 2.Agree with continuing Plavix for stroke risk reduction. Continue with Lipitor for dyslipidemia an d stroke risk reduction. Continue with meropenem. 3.Continue with DVT prophylaxis using Lovenox and continue with management of hypertension as indica leslie. AHMET/KRISTAN Voice ID: [id number] Report ID: [id number]
[2017-09-12] MEDS: ENOXAPARIN 40 MG/0.4 ML SQ SCH (18:02)
[2017-09-12] MEDS: ARFORMOTEROL TARTRATE 15 MCG/2 ML VIAL.NEB NEB SCH (19:35)
[2017-09-12] MEDS: CARVEDILOL 6.25 MG TAB PO SCH (20:14)
[2017-09-12] MEDS: ATORVASTATIN 40 MG TAB PO SCH (20:15)
[2017-09-12] MEDS: ENSURE ENLIVE 237 ML CAN PO SCH (20:15)
[2017-09-13] MEDS ORDERED: HYDRALAZINE HCL 20 MG/ML VIAL IV PRN (00:47)
[2017-09-13] MEDS: NA CHLORIDE 0.9% 1,000 ML IV SCH (04:20)
[2017-09-13] MEDS ORDERED: cloNIDine HCl 0.1 MG TAB PO PRN (04:52)
[2017-09-13 05:49] LABS: Absolute Lymphocytes (CBC) 1.4 K/uL (0.7-4.9); Absolute Monocytes 0.8 K/uL (0.1-1.3); Absolute Neutrophil 4.5 K/uL (1.8-8.0); Basophils % 0.9 % (0-1.3); Hematocrit 36.6 % (36.0-45.0); Lymphocytes % 19.6 % (15.3-44.8); MCH 29.7 pg (27.0-35.0); MCV 91.1 fL (80-100); Monocytes % 11.5 % (3.3-12.3); RBC Red Blood Cell Count 4.02 M/uL (3.86-4.86)
[2017-09-13 05:53] LABS: Magnesium 2.1 mg/dL (1.8-2.4); Potassium 3.6 mmol/L (3.5-5.1)
[2017-09-13] MEDS: ARFORMOTEROL TARTRATE 15 MCG/2 ML VIAL.NEB NEB SCH ×2 (08:13→19:40)
--- NOTE | 2017-09-13 08:18 | P.HP ---
Certification for Inpatient Patient admitted to: Inpatient With expected LOS: >2 Midnights Patient will require the following post-hospital care: None Practitioner: I am a practitioner with admitting privileges, knowledge of patient current condition, hospital course, and medical plan of care. Services: Services provided to patient in accordance with Admission requirements found in Title 42 Section 412.3 of the Code of Federal Regulations Patient History Date of Service: 09/11/17 Reason for admission: Weakness History of Present Illness: Patient is a 77-year-old female came to the hospital with altered mental status. The patient was in the hospital a week ago and treated with a resistant urinary tract infection. Patient wound had ESBL E coli. She was discharged with Merrem. Patient has become more debilitated at home and is requiring maximum assistance. She is not really able to do anything for herself so the family brought her back in for evaluation. Patient has bilateral lower extremity contractions and she is not able to answer any of my questions. I am not really sure how she has been functioning, but the family states she was ambulatory a couple weeks ago. It appears she has had a neurologic declining. Will do further evaluation at this time. Allergies No Known Allergies Allergy (Verified 09/12/17 03:24) Home Medications: Amlodipine [Norvasc*] 10 mg PO DAILY #30 tab 07/27/16 Clopidogrel Bisulfate [Plavix*] 75 mg PO DAILY #30 tablet 07/27/16 Famotidine [Pepcid] 20 mg PO BID #60 tablet 07/27/16 Carvedilol [Coreg*] 6.25 mg PO BID #60 tab 10/03/16 Hydralazine [Apresoline] 25 mg PO TID 09/11/17 Meropenem [Merrem 500 MG/100 ML NS IVPB] 500 mg IV Q12H 09/11/17 - Past Medical/Surgical History Has patient received pneumonia vaccine in the past: Yes Diabetic: No -: HTN -: CVA -: COPD -: AFIB -: right hemiparesis -: aphasic -: HYSTERECTOMY -: RIB REMOVAL -: Hip replacement -: Cataract surgery - Family History Father Family History: Reviewed- Non-Contributory - Social History Smoking Status: Former smoker Alcohol use: No CD- Drugs: No Caffeine use: No Place of Residence: Home Review of Systems 10-point ROS is otherwise unremarkable Physical Examination - Vital Signs Temperature: 97.0 F Blood Pressure: 126/62 Pulse: 55 Respirations: 18 Pulse Ox (%): 95 - Physical Exam General: Confused HEENT: Atraumatic, PERRLA, Mucous membr. moist/pink, EOMI, Sclerae nonicteric Neck: Supple, 2+ carotid pulse no bruit, No LAD, Without JVD or thyroid abnormality Respiratory: Clear to auscultation bilaterally, Normal air movement Cardiovascular: Regular rate/rhythm, Normal S1 S2, Systolic murmur Capillary refill: <2 Seconds Gastrointestinal: Normal bowel sounds, Soft and benign, Non-distended, No tenderness Musculoskeletal: No clubbing, No swelling, No tenderness, Contractures Integumentary: No rashes Neurological: Cranial nerves 3-12 intact, Abnormal gait, Abnormal speech, Abnormal strength, Abnormal tone, Abnormal sensation, Abnormal affect Lymphatics: No axilla or inguinal lymphadenopathy Assessment & Plan - Problems (Diagnosis) (1) Generalized weakness Current Visit: Yes Status: Acute (2) Contracture of muscle of lower extremity Current Visit: Yes Status: Acute (3) History of ESBL E. coli infection Current Visit: Yes Status: Acute (4) Altered mental status Onset Date: 06/24/16 Current Visit: No Status: Acute Qualifiers: Altered mental status type: unspecified Qualified Code(s): R41.82 - Altered mental status, unspecified (5) Hypertension Onset Date: 06/24/16 Current Visit: No Status: Chronic Qualifiers: - Plan Plan: 1. Neuro checks q.4 hr 2. MRI of the brain 3. Physical therapy evaluation 4. Speech therapy evaluation 5. Anti-platelet and statin therapy 6. Carotid Doppler and echocardiogram 7. GI and DVT prophylaxis - Advance Directives Does patient have a Living Will: No Does patient have a Durable POA for Healthcare: Yes - Code Status/Comfort Care Code Status Assessed: Yes Code Status: Full Code Critical Care: No Time Spent Managing PTS Care (In Minutes): 50
[2017-09-13] MEDS ORDERED: CYANOCOBALAMIN 1000MCG/ML INJ SQ ONE (08:20)
[2017-09-13] MEDS: ASPIRIN EC 81 MG TAB PO SCH (09:00)
[2017-09-13] MEDS ORDERED: VALSARTAN 160 MG TAB PO SCH (09:00)
[2017-09-13] MEDS: CLOPIDOGREL 75 MG TABLET PO SCH (09:00)
[2017-09-13] MEDS: FAMOTIDINE 20 MG TAB PO SCH (09:00)
[2017-09-13] MEDS: ENSURE ENLIVE 237 ML CAN PO SCH (09:00)
[2017-09-13] MEDS: AMLODIPINE 10 MG TAB PO SCH (09:00)
[2017-09-13] MEDS: CARVEDILOL 6.25 MG TAB PO SCH (09:00)
[2017-09-13] MEDS: Meropenem 500 MG in NA CHLORIDE 0.9% 100 ML IV SCH (10:11)
[2017-09-13] MEDS ORDERED: CLONIDINE 0.2 MG/PATCH TD SCH (14:24)
[2017-09-13] MEDS ORDERED: ENALAPRILAT 1.25 MG/ML VIAL IV PRN (14:33)
[2017-09-13] MEDS: D5 0.45 NS 1,000 ML IV SCH (15:17)
--- NOTE | 2017-09-13 15:39 | PN ---
Subjective: Currently patient lying in bed. She looks comfortable. She has no chest pain or abdomi nal pain. Her daughter is at the bedside. She is very upset because the patient is n.p.o. No fever , no chills overnight. The patient's daughter is at the bedside. She is upset about the fact that h er mother is n.p.o. Review of Systems: Otherwise unobtainable. The patient does not respond to question. Objective: Vital Signs: Currently, blood pressure is 176/73, respiratory rate 18, pulse 62, tempera ture 97.1. General: The patient is alert and not sure how much oriented. HEENT: Atraumatic, normocephalic. Oral mucosa is dry. Neck: Supple. No JVD. No bruits. Heart: Regular rate and rhythm. S1, S2 normal. No gallop. Abdomen: Soft, nontender. No masses. No hepatosplenomegaly. Positive bowel sounds. Extremities: No clubbing, cyanosis, or edema. No calf tenderness. Neurologic: Alert, but she does not answer questions. She tracks appropriately, but I could not do a full exam as patient is not following commands. Laboratory Data: Today, showed CBC within normal. UA was negative. Assessment And Plan: 1.Acute infarct of the right basal ganglia. Neurology consult appreciated. The patient was placed on Plavix. Also she needed aspirin and statin, but that will all be on hold, due to the dysphagia an d risk of aspiration at this point. 2.Hypertension. Not controlled, as the patient is n.p.o. We will start her on metoprolol 5 mg ever y 6 hours and enalapril as needed for blood pressure above 180. 3.Atrial fibrillation. We will place the patient on metoprolol IV instead of Coreg as the patient i s n.p.o. at this point. Continue rate control. The patient not on chronic anticoagulation due to ri sk of falls, but she will be on Plavix when she is able to swallow. 4.Chronic obstructive pulmonary disease, emphysema, stable. 5.Dysphagia. We will keep her n.p.o., and will consult with speech evaluation. 6.Acid reflex. She will resume PPI when she is able to swallow. 7.? Congestive heart failure. Echocardiogram done, was difficult. Study showed normal left ventric ular size and ejection fraction, aortic sclerosis, mitral annular calcification, mild tricuspid regur gitation, normal right ventricular systolic pressure. 8.Malnutrition with weight loss and protein calorie malnutrition. The patient n.p.o. currently, but we will get a speech evaluation to evaluate her, to see if she can swallow. If she fails then she m ay need to have a PEG tube if that is what the family wants. 9.Recent extended-spectrum beta-lactamase, urinary tract infection, where the patient was admitted 4 weeks ago. She is currently on meropenem. We will resume until she finishes a course of antibiotic s. 10.Severe carotid stenosis in the proximal left external carotid artery. The patient will be needin g to be evaluated by Vascular Surgery as outpatient. 11.Continue physical therapy. 12.Deep vein thrombosis prophylaxis, on Lovenox. 13.Change afterwards from normal saline to D5 half normal, given the patient is n.p.o. at this point . PEDRO/KRISTAN Voice ID: [id number] Report ID: [id number]
[2017-09-13] MEDS: ENOXAPARIN 40 MG/0.4 ML SQ SCH (17:05)
[2017-09-13] MEDS ORDERED: METOPROLOL TARTRATE 5 MG/5 ML INJ IV SCH (18:00)
[2017-09-13] MEDS: SODIUM CHLORIDE IV SCH (20:46)
[2017-09-13] MEDS: MEROPENEM 500 MG IV SCH (20:46)
[2017-09-14] MEDS: D5 0.45 NS 1,000 ML IV SCH ×2 (03:33→16:53)
[2017-09-14 05:04] LABS: Absolute Monocytes 0.7 K/uL (0.1-1.3); Absolute Neutrophil 3.5 K/uL (1.8-8.0); Basophils % 1.9 % (0-1.3); Eosinophils % 5.4 % (0-4.4); Hematocrit 35.4 % (36.0-45.0); Lymphocytes % 18.4 % (15.3-44.8); MCH 30.2 pg (27.0-35.0); Monocytes % 11.9 % (3.3-12.3); RBC Red Blood Cell Count 3.93 M/uL (3.86-4.86)
[2017-09-14 05:51] LABS: Magnesium 1.9 mg/dL (1.8-2.4)
[2017-09-14] MEDS: ARFORMOTEROL TARTRATE 15 MCG/2 ML VIAL.NEB NEB SCH ×2 (07:32→19:11)
[2017-09-14] MEDS: SODIUM CHLORIDE IV SCH ×2 (08:29→22:07)
[2017-09-14] MEDS: MEROPENEM 500 MG IV SCH ×2 (08:29→22:07)
[2017-09-14] MEDS: KCL 20 MEQ/100 mL IVPB 20 MEQ/100 ML BAG IV SCH ×2 (12:07→13:40)
[2017-09-14] MEDS ORDERED: D50W 25 GM/50 ML SYRINGE IV PRN ×2 (12:15→19:24)
[2017-09-14] MEDS ORDERED: GLUCAGON 1 MG/VIAL IM PRN ×2 (12:15→19:24)
--- NOTE | 2017-09-14 14:04 | PN ---
Subjective: Currently, she is lying in bed. She looks comfortable. No issues overnight. She is n. p.o. on fluid. Her others are at the bedside. They have questions about her speech eval. The patie nt is extremely poor historian. Review of Systems: Otherwise unobtainable. Objective: Vital Signs: Currently, blood pressure is 167/71, respiratory rate 20, pulse 58, tempera ture 97.8, the patient had 100% on 2 L nasal cannula. General: She is alert, but not oriented. Does not look in any distress. HEENT: Atraumatic, normocephalic. PERRLA. Oral mucosa is dry. Neck: Supple. No JVD. No carotid bruits. Chest: Clear to auscultation. Good air entry. Heart: Regular rate and rhythm. S1, S2 normal. No gallop or murmur. Abdomen: Soft, nontender. No masses. No hepatosplenomegaly. Positive bowel sounds. Extremities: No clubbing, cyanosis, or edema. No tenderness. Neurologic: Alert, but she is not oriented and she is not following commands, but she tracks appropr iately. Laboratory Data: Today, CBC within normal, except for hemoglobin 11.9. Chemistry within normal, exc ept for potassium dropped to 3, glucose at 300 this morning, calcium 7.7, magnesium 1.9. Assessment And Plan: 1.Acute infarction of the right basal ganglia. Neurology consult appreciated. The patient will nee d to be on Plavix, but she is n.p.o. at this point. She will also need to be on aspirin and statin a fter speech eval cleared her for swallowing. If the patient cannot pass speech, then the next step w ould be considering PEG tube if the family would like that. I discussed that with her daughter today at the bedside and she said she will discuss it with the family. 2.Hypertension, borderline control. Given her recent stroke, we will keep her systolic blood pressu re above 150. She is currently on metoprolol IV for rate control for atrial fibrillation as she coul d not take her Coreg orally and she is on enalapril if systolic blood pressure above 180. 3.Atrial fibrillation, rate controlled on IV metoprolol. We will switch back to Coreg when she is a ble to swallow. The patient is not on chronic anticoagulation given the risk of falls. 4.Chronic obstructive pulmonary disease, emphysema, stable. No shortness of breath. 5.Dysphagia, pending swallow eval in the morning. If the patient cannot pass that, then she may end up needing PEG tube. 6.Acid reflux. Continue PPI once the patient is able to swallow. 7.History of congestive heart failure. Echocardiogram study done and the study was inconclusive and difficult with normal ejection fraction, but aortic sclerosis and mitral annular calcification. 8.Cachexia with weight loss and malnutrition secondary to her dysphagia. 9.Recent extended-spectrum beta lactamase urinary tract infection. She is currently on meropenem. We will continue with that after she completed her outpatient course. 10.Deep vein thrombosis prophylaxis, on Lovenox. 11.Hypokalemia. We will replace on potassium protocol. 12.Continue D5W fluid as the patient n.p.o. that was probably causing her hyperglycemia at this poin t. I will start her on low insulin sliding scale. MT/MODL Voice ID: [id number] Report ID: [id number]
[2017-09-14] MEDS ORDERED: INSULIN -REGULAR HUMAN 50 UNIT/0.5 ML ML SQ SCH (16:30)
[2017-09-14] MEDS: ENOXAPARIN 40 MG/0.4 ML SQ SCH (16:53)
[2017-09-14] MEDS ORDERED: KCL 20 MEQ/100 mL IVPB 20 MEQ/100 ML BAG IV SCH (23:45)
[2017-09-15 04:43] VITALS: BMI 19.3
[2017-09-15] MEDS: D5 0.45 NS 1,000 ML IV SCH ×2 (05:15→22:06)
[2017-09-15 05:26] LABS: Absolute Lymphocytes (CBC) 1.7 K/uL (0.7-4.9); Absolute Monocytes 0.9 K/uL (0.1-1.3); Absolute Neutrophil 3.8 K/uL (1.8-8.0); Basophils % 1.1 % (0-1.3); Eosinophils % 4.8 % (0-4.4); Hematocrit 37.4 % (36.0-45.0); MCH 29.7 pg (27.0-35.0); MCV 89.3 fL (80-100); MPV 7.6 fL (7.6-11.3); Monocytes % 12.8 % (3.3-12.3); RBC Red Blood Cell Count 4.19 M/uL (3.86-4.86)
[2017-09-15 05:46] LABS: Potassium 3.9 mmol/L (3.5-5.1)
[2017-09-15] MEDS: INSULIN -REGULAR HUMAN 50 UNIT/0.5 ML ML SQ SCH ×4 (06:00→18:00)
[2017-09-15] MEDS ORDERED: KCL 20 MEQ/100 mL IVPB 20 MEQ/100 ML BAG IV SCH (08:00)
[2017-09-15] MEDS: ASPIRIN EC 81 MG TAB PO SCH (09:00)
[2017-09-15] MEDS: ENSURE ENLIVE 237 ML CAN PO SCH ×2 (09:00→21:00)
[2017-09-15] MEDS: CARVEDILOL 6.25 MG TAB PO SCH ×2 (09:00→22:07)
[2017-09-15] MEDS: FAMOTIDINE 20 MG TAB PO SCH ×2 (09:00→22:07)
[2017-09-15] MEDS: CLOPIDOGREL 75 MG TABLET PO SCH (09:00)
[2017-09-15] MEDS: AMLODIPINE 10 MG TAB PO SCH (09:00)
[2017-09-15] MEDS: MEROPENEM 500 MG IV SCH ×2 (10:32→22:08)
[2017-09-15] MEDS: SODIUM CHLORIDE IV SCH ×2 (10:32→22:08)
--- NOTE | 2017-09-15 11:12 | P.PN ---
Subjective Date of Service: 09/15/17 Primary Care Provider: Dr. Bragg Chief Complaint: Weakness Subjective: Other (Patient not able to eat. Patient to have speech evaluation for dysphagia. Patient found to have CVA.) Physical Examination - Vital Signs Temperature: 97.9 F Blood Pressure: 172/82 Pulse: 57 Respirations: 18 Pulse Ox (%): 93 - Physical Exam General: Alert, Other (Patient with aphasia) HEENT: Atraumatic Neck: Supple Respiratory: Clear to auscultation bilaterally, Normal air movement Cardiovascular: Normal pulses, Regular rate/rhythm Gastrointestinal: Normal bowel sounds, Soft and benign, Non-distended, No masses , No rebound, No guarding Musculoskeletal: No tenderness, No warmth Integumentary: No erythema, No warmth, No cyanosis Neurological: Other (Patient with poor strength.) - Studies Medications List Reviewed: Yes Assessment & Plan - Problems (Diagnosis) (1) Weakness Onset Date: 09/12/17 Current Visit: Yes Status: Acute Plan: Secondary to CVA. Patient found to have right basal ganglia CVA. Patient with history of previous CVA with aphasia. Patient has vascular dementia. Will discuss case with neurology. Patient to have speech reassess her swallowing. If the patient is not able to swallow then will need to discuss about PEG tube placement or possibly hospice. I did speak with the who does not favor PEG tube. Will discuss with daughter. Await recommendations by speech pathology. (2) ESBL (extended spectrum beta-lactamase) producing bacteria infection Current Visit: No Status: Acute Plan: Continue with Merrem. Will need total of 14 days. On Friday she still had for 9 days left. (3) UTI (urinary tract infection) Onset Date: 09/04/17 Current Visit: No Status: Acute Plan: Continue as above Qualifiers: Urinary tract infection type: site unspecified Hematuria presence: without hematuria Qualified Code(s): N39.0 - Urinary tract infection, site not specified (4) Atrial fibrillation Current Visit: No Status: Chronic Plan: Not on chronic anticoagulation due to risk of falls. Stable. Will continue with Plavix. Qualifiers: Atrial fibrillation type: chronic (5) COPD (chronic obstructive pulmonary disease) Onset Date: 06/24/16 Current Visit: No Status: Chronic Plan: Continue with medication Qualifiers: COPD type: chronic bronchitis Chronic bronchitis type: unspecified Qualified Code(s): J42 - Unspecified chronic bronchitis (6) Dysphagia Current Visit: No Status: Chronic Plan: Will have speech pathology assess. Qualifiers: (7) GERD (gastroesophageal reflux disease) Current Visit: No Status: Chronic Plan: Continue with medication Qualifiers: (8) History of CVA with residual deficit Current Visit: No Status: Chronic Plan: Continue as above. Now with new stroke. (9) Hypertension Onset Date: 06/24/16 Current Visit: No Status: Chronic Plan: Will continue with medication. Qualifiers: (10) Moderate protein-calorie malnutrition Onset Date: 09/04/17 Current Visit: No Status: Chronic Plan: Will have Dietary evaluate and make recommendation. (11) Dementia Current Visit: Yes Status: Chronic Plan: As reported by Neurology on last visit. Will discuss with Neurology. Qualifiers: Dementia type: vascular dementia Dementia behavioral disturbance: without behavioral disturbance Qualified Code(s): F01.50 - Vascular dementia without behavioral disturbance (12) Edema Current Visit: Yes Status: Acute Plan: Patient with history of diastolic dysfunction. Qualifiers: Edema type: unspecified Qualified Code(s): R60.9 - Edema, unspecified (13) B12 deficiency Current Visit: Yes Status: Acute Plan: B12 def noted. Will start B12 supplementation (14) CVA (cerebral vascular accident) Current Visit: Yes Status: Acute Plan: Continue as above. Await speech pathology evaluation for her swallowing. Patient will need skilled placement. May need to discuss option of hospice if swallow study abnormal. does not favor PEG tube for the patient. Will need discuss with family members. Qualifiers: CVA mechanism: other Qualified Code(s): I63.8 - Other cerebral infarction Discharge Plan: Other (skilled placement) Time Spent Managing Pts Care (In Minutes): 55
[2017-09-15] MEDS: ARFORMOTEROL TARTRATE 15 MCG/2 ML VIAL.NEB NEB SCH ×2 (11:30→20:11)
--- NOTE | 2017-09-15 15:10 | RAD REPORT ---
EXAM DESCRIPTION: RAD - Barium Swallow Modified - 09/15/2017 3:03 pm CLINICAL HISTORY: suspected aspiration and decline of swallow History of CVA with coughing and choking. COMPARISON: Barium Swallow Modified dated 09/05/2017 TECHNIQUE: The patient was given liquid, semi-solid and solid forms of barium. Lateral view fluorosc opic imaging was performed in conjunction with speech pathology service. FINDINGS: LIMITED D/T PT COMPLIANCE; TWO TRIALS OF PUDDING THICK CONSISTENCY OBSERVED DELAYED SWALLOW REFLEX REDUCED HYOLARYNGEAL EXCURSION Total fluoroscopy time: 7 minutes 20 seconds.
[2017-09-15] MEDS: ENOXAPARIN 40 MG/0.4 ML SQ SCH (18:09)
[2017-09-15] MEDS: ATORVASTATIN 40 MG TAB PO SCH (22:08)
[2017-09-16 05:45] LABS: Potassium 3.5 mmol/L (3.5-5.1)
[2017-09-16] MEDS: INSULIN -REGULAR HUMAN 50 UNIT/0.5 ML ML SQ SCH ×4 (05:56→18:00)
[2017-09-16] MEDS ORDERED: KCL 20 MEQ/100 mL IVPB 20 MEQ/100 ML BAG IV SCH (06:00)
[2017-09-16] MEDS: ARFORMOTEROL TARTRATE 15 MCG/2 ML VIAL.NEB NEB SCH ×2 (08:16→20:20)
[2017-09-16] MEDS: ENSURE ENLIVE 237 ML CAN PO SCH ×2 (09:00→21:00)
[2017-09-16] MEDS: D5 0.45 NS 1,000 ML IV SCH (09:40)
--- NOTE | 2017-09-16 09:46 | P.PN ---
Subjective Date of Service: 09/16/17 Primary Care Provider: Dr. Bragg Chief Complaint: Weakness Subjective: Other (Stable no significant change. Patient tolerated diet last night with family. at bedside.) Physical Examination - Vital Signs Temperature: 97.8 F Blood Pressure: 156/84 Pulse: 61 Respirations: 15 Pulse Ox (%): 92 - Physical Exam General: Alert, Demented HEENT: Atraumatic Neck: Supple Respiratory: Clear to auscultation bilaterally, Normal air movement Cardiovascular: Normal pulses, Regular rate/rhythm Gastrointestinal: Normal bowel sounds, Soft and benign, Non-distended, No tenderness, No masses, No rebound, No guarding Musculoskeletal: No tenderness, No warmth Neurological: Dementia - Studies Medications List Reviewed: Yes Assessment & Plan - Problems (Diagnosis) (1) Weakness Onset Date: 09/12/17 Current Visit: Yes Status: Acute Plan: Secondary to CVA. Patient found to have right basal ganglia CVA. Patient with history of previous CVA with aphasia. Patient also has vascular dementia. Patient had swallow tests yesterday. Case discussed at length with speech therapy. Patient at risk for aspiration. Because of her dementia she is not able to swallow appropriately. This was addressed in detail with daughter and . Options were address including PEG tube placement, advanced directives an hospice. Family does not want PEG tube placed. They have to finalize the possibility of advanced directives leaning towards do not resuscitate along with hospice today. I was able to discuss this in detail with the . Patient has poor prognosis for recovery due to poor nutrition and current status. Anticipate discharge to hospice at home. Will rediscuss with family later today. Will continue with treatment for her UTI. (2) ESBL (extended spectrum beta-lactamase) producing bacteria infection Current Visit: No Status: Acute Plan: Continue with Merrem. Will need total of 14 days. Patient still has about 6 days left of treatment. (3) UTI (urinary tract infection) Onset Date: 09/04/17 Current Visit: No Status: Acute Plan: Continue as above Qualifiers: Urinary tract infection type: site unspecified Hematuria presence: without hematuria Qualified Code(s): N39.0 - Urinary tract infection, site not specified (4) Atrial fibrillation Current Visit: No Status: Chronic Plan: Not on chronic anticoagulation due to risk of falls. Stable. Will continue with Plavix. Qualifiers: Atrial fibrillation type: chronic (5) COPD (chronic obstructive pulmonary disease) Onset Date: 06/24/16 Current Visit: No Status: Chronic Plan: Continue with medication Qualifiers: COPD type: chronic bronchitis Chronic bronchitis type: unspecified Qualified Code(s): J42 - Unspecified chronic bronchitis (6) Dysphagia Current Visit: No Status: Chronic Plan: Spoke at length to speech pathology about her current condition. Due to her dementia sees not able to process her action of swallowing appropriately. Patient still at risk for aspiration. Options were address with family. Patient currently with a pureed diet with thickened food. Continue as above. Will need to monitor for aspiration Qualifiers: (7) GERD (gastroesophageal reflux disease) Current Visit: No Status: Chronic Plan: Continue with medication Qualifiers: (8) History of CVA with residual deficit Current Visit: No Status: Chronic Plan: Continue as above. Now with new stroke. (9) Hypertension Onset Date: 06/24/16 Current Visit: No Status: Chronic Plan: Will continue with medication. Qualifiers: Hypertension type: essential hypertension (10) Moderate protein-calorie malnutrition Onset Date: 09/04/17 Current Visit: No Status: Chronic Plan: Discuss in detail with speech pathology. Patient with malnutrition likely from poor intake. This will likely continue. Pursuing possible hospice. Continue as above. (11) Dementia Current Visit: Yes Status: Chronic Plan: As reported by Neurology on last visit. Discuss with family. Continue with above plan of care. Pursuing hospice at this time. Qualifiers: Dementia type: vascular dementia Dementia behavioral disturbance: without behavioral disturbance Qualified Code(s): F01.50 - Vascular dementia without behavioral disturbance (12) Edema Current Visit: Yes Status: Acute Plan: Patient with history of diastolic dysfunction. Qualifiers: Edema type: unspecified Qualified Code(s): R60.9 - Edema, unspecified (13) B12 deficiency Current Visit: Yes Status: Acute Plan: B12 def noted. Will start B12 supplementation (14) CVA (cerebral vascular accident) Current Visit: Yes Status: Acute Plan: Continue as above. Qualifiers: CVA mechanism: other Qualified Code(s): I63.8 - Other cerebral infarction (15) Encounter for hospice care discussion Current Visit: Yes Status: Acute Plan: This was discussed at length yesterday and again today with family. Family is to decide on possible hospice and DNR advanced directives today. Await for the decision. Discharge Plan: Home Plan to discharge in: 24 Hours - Code Status/Comfort Care Code Status Assessed: Yes (This was addressed in detail. Family leaning towards hospice) Time Spent Managing Pts Care (In Minutes): 55
[2017-09-16] MEDS: CARVEDILOL 6.25 MG TAB PO SCH ×2 (10:10→21:00)
[2017-09-16] MEDS: CLOPIDOGREL 75 MG TABLET PO SCH (10:10)
[2017-09-16] MEDS: ASPIRIN EC 81 MG TAB PO SCH (10:10)
[2017-09-16] MEDS: FAMOTIDINE 20 MG TAB PO SCH ×3 (10:10→21:03)
[2017-09-16] MEDS: AMLODIPINE 10 MG TAB PO SCH (10:10)
[2017-09-16] MEDS: MEROPENEM 500 MG IV SCH ×2 (10:20→21:02)
[2017-09-16] MEDS: SODIUM CHLORIDE IV SCH ×2 (10:20→21:02)
[2017-09-16] MEDS: ENOXAPARIN 40 MG/0.4 ML SQ SCH (17:11)
[2017-09-16] MEDS: ATORVASTATIN 40 MG TAB PO SCH ×2 (21:00→21:03)
[2017-09-17] MEDS: D5 0.45 NS 1,000 ML IV SCH ×2 (00:45→12:06)
[2017-09-17 05:30] LABS: Potassium 3.6 mmol/L (3.5-5.1)
[2017-09-17] MEDS: INSULIN -REGULAR HUMAN 50 UNIT/0.5 ML ML SQ SCH ×3 (05:53→11:01)
[2017-09-17] MEDS ORDERED: KCL 20 MEQ/100 mL IVPB 20 MEQ/100 ML BAG IV SCH (06:00)
[2017-09-17] MEDS: ARFORMOTEROL TARTRATE 15 MCG/2 ML VIAL.NEB NEB SCH (08:33)
[2017-09-17] MEDS: AMLODIPINE 10 MG TAB PO SCH (09:00)
[2017-09-17] MEDS: CARVEDILOL 6.25 MG TAB PO SCH (09:00)
[2017-09-17] MEDS: ENSURE ENLIVE 237 ML CAN PO SCH (09:00)
[2017-09-17] MEDS: CLOPIDOGREL 75 MG TABLET PO SCH (09:22)
[2017-09-17] MEDS: SODIUM CHLORIDE IV SCH (09:23)
[2017-09-17] MEDS: ASPIRIN EC 81 MG TAB PO SCH (09:23)
[2017-09-17] MEDS: MEROPENEM 500 MG IV SCH (09:23)
[2017-09-17] MEDS: FAMOTIDINE 20 MG TAB PO SCH (09:23)
[2017-09-17 09:30] VITALS: O2SAT 95
--- NOTE | 2017-09-17 11:14 | P.DS ---
Admission Date: 09/13/17 Discharge Date: 09/17/17 Primary Care Provider: Dr. Bragg Disposition: HOSPICE-HOME Discharge Condition: GOOD Reason for Admission: Weakness Consultations: Neurology-Dr. Huitron Procedures: MRI/MRA brain: FINDINGS: Diffusion weighted/ADC mapping demonstrates a 5 mm area of abnormal signal within the right basal ganglia compatible with an acute infarction. Moderate to marked signal within periventricular, deep and subcortical white matter likely represents ischemic changes secondary to small vessel disease. The ventricles are normal in caliber. An extra-axial fluid collection is not noted. Fluid within the sinuses/mastoids is not seen. origin of the posterior cerebral artery is noted. Mild areas of narrowing involve the anterior, middle and posterior cerebral arteries. An aneurysm is not seen. An acute occlusion is not noted. High-grade stenosis involves the proximal left external carotid artery. Mild plaque is present within the common and internal carotid arteries. The vertebral arteries are tortuous without significant stenosis. IMPRESSION: 1. A 5 mm acute infarct of the right basal ganglia. 2. No acute abnormality involving the arteries of the head and neck. Echocardiogram: Ejection fraction 77% - Problems (1) Weakness Onset Date: 09/12/17 Current Visit: Yes Status: Acute (2) ESBL (extended spectrum beta-lactamase) producing bacteria infection Current Visit: No Status: Acute (3) UTI (urinary tract infection) Onset Date: 09/04/17 Current Visit: No Status: Acute Qualifiers: Urinary tract infection type: site unspecified Hematuria presence: without hematuria Qualified Code(s): N39.0 - Urinary tract infection, site not specified (4) Atrial fibrillation Current Visit: No Status: Chronic Qualifiers: Atrial fibrillation type: chronic (5) COPD (chronic obstructive pulmonary disease) Onset Date: 06/24/16 Current Visit: No Status: Chronic Qualifiers: COPD type: chronic bronchitis Chronic bronchitis type: unspecified Qualified Code(s): J42 - Unspecified chronic bronchitis (6) Dysphagia Current Visit: No Status: Chronic Qualifiers: (7) GERD (gastroesophageal reflux disease) Current Visit: No Status: Chronic Qualifiers: (8) History of CVA with residual deficit Current Visit: No Status: Chronic (9) Hypertension Onset Date: 06/24/16 Current Visit: No Status: Chronic Qualifiers: Hypertension type: essential hypertension (10) Moderate protein-calorie malnutrition Onset Date: 09/04/17 Current Visit: No Status: Chronic (11) Dementia Current Visit: Yes Status: Chronic Qualifiers: Dementia type: vascular dementia Dementia behavioral disturbance: without behavioral disturbance Qualified Code(s): F01.50 - Vascular dementia without behavioral disturbance (12) Edema Current Visit: Yes Status: Acute Qualifiers: Edema type: unspecified Qualified Code(s): R60.9 - Edema, unspecified (13) B12 deficiency Current Visit: Yes Status: Acute (14) CVA (cerebral vascular accident) Current Visit: Yes Status: Acute Qualifiers: CVA mechanism: other Qualified Code(s): I63.8 - Other cerebral infarction (15) Encounter for hospice care discussion Current Visit: Yes Status: Acute Brief History of Present Illness: 77-year-old female presented emergency room with declining health. Increased fatigue and confusion was noted. Patient had recently been hospitalized for UTI requiring PICC line and IV antibiotic therapy as an outpatient. Patient has multiple medical problems including previous CVA with residual aphasia, dementia, atrial fibrillation, COPD, hypertension, dementia. Initial lab work was unremarkable. Patient was admitted for further treatment and evaluation. Hospital Course: During the course of her stay, the patient was further evaluated. Neurology was consulted. MRI/MRA brain showed 5 mm right basal ganglia CVA. Echocardiogram showed ejection fraction within normal range. The patient was continued on IV antibiotic therapy as the patient recently had ESBL in the urine. Pro calcitonin was unremarkable. Urine was unremarkable. Overall the patient's condition did not significantly improve due to poor oral intake. There was some concern of dysphagia. Speech evaluated the patient. Swallow study was addressed. Because of her dementia and her previous CVA the patient is not able to adequately swallow appropriately. Patient still at risk for aspiration. Findings were discussed in detail with family. Patient still malnourished. After long discussion with the , daughter and neurology, it appeared that the patient has been declining in health over the past several weeks to months. Family understands that her condition is likely to worsen with poor oral intake. Family did not desire the patient to have a PEG tube. Advanced directives and options of care were addressed in detail. Advanced directives were addressed with family. Family desires the patient to be do not resuscitate. Hospice was offered. After deliberation, family has agreed with hospice at home. No need for antibiotic therapy at discharge. Patient will continue with chronic medications. Patient will be discharged to hospice at home. Patient continue with comfort feeding. UTI prevention addressed. Patient with atrial fibrillation. Not on chronic anti coagulation at this time. Continue with aspirin 81 mg daily. Patient with hypertension. Medications adjusted. Patient continue with carvedilol 6.25 mg 1 pill twice daily and Norvasc 10 mg 1 pill daily. Hydralazine has been discontinued. Patient with hyperlipidemia. Patient continue with Lipitor 40 mg 1 pill once daily. Patient has GERD. Patient continue with Pepcid 20 mg 1 pill twice daily. Patient with CVA, dementia, malnutrition and dysphagia. Patient continue with aspirin 81 mg daily. As pressure precautions will be in place. Patient continue with pureed diet with thickened liquids. Fall precautions in place. Patient continue with hospice at discharge. Further adjustment in medication can be done by hospice. Vital Signs/Physical Exam: Temp Pulse Resp BP Pulse Ox 97.5 F 68 22 H 135/65 96 09/17/17 08:00 09/17/17 09:00 09/17/17 08:00 09/17/17 09:00 09/17/17 08:00 General: Alert, Demented HEENT: Atraumatic Neck: Supple Respiratory: Clear to auscultation bilaterally, Normal air movement Cardiovascular: Normal pulses, Regular rate/rhythm Gastrointestinal: Normal bowel sounds, Soft and benign, Non-distended Musculoskeletal: No tenderness, No warmth Integumentary: No warmth, No cyanosis Neurological: Other (Patient with aphasia), Dementia Laboratory Data at Discharge: WBC 6.7 K/uL (4.3-10.9) D 09/15/17 05:00 Hgb 12.4 g/dL (12.0-15.0) 09/15/17 05:00 Hct 37.4 % (36.0-45.0) 09/15/17 05:00 Plt Count 282 K/uL (152-406) 09/15/17 05:00 Sodium 140 mmol/L (136-145) 09/17/17 04:40 Potassium 3.6 mmol/L (3.5-5.1) 09/17/17 04:40 BUN 11 mg/dL (7-18) 09/17/17 04:40 Creatinine 0.80 mg/dL (0.55-1.3) 09/17/17 04:40 Glucose 89 mg/dL (74-106) 09/17/17 04:40 Magnesium 2.0 mg/dL (1.8-2.4) 09/15/17 05:00 Total Bilirubin 0.6 mg/dL (0.2-1.0) 09/12/17 05:10 AST 24 U/L (15-37) 09/12/17 05:10 ALT 27 U/L (12-78) 09/12/17 05:10 Alkaline Phosphatase 80 U/L (45-117) 09/12/17 05:10 Triglycerides 140 mg/dL (<150) 09/16/17 04:08 Cholesterol 212 mg/dL (<200) H 09/16/17 04:08 HDL Cholesterol 37 mg/dL (40-60) L 09/16/17 04:08 Cholesterol/HDL Ratio 5.73 09/16/17 04:08 Home Medications: Amlodipine [Norvasc*] 10 mg PO DAILY #30 tab 07/27/16 Clopidogrel Bisulfate [Plavix*] 75 mg PO DAILY #30 tablet 07/27/16 Famotidine [Pepcid] 20 mg PO BID #60 tablet 07/27/16 Carvedilol [Coreg*] 6.25 mg PO BID #60 tab 10/03/16 Aspirin [Aspirin EC 81 MG] 81 mg PO DAILY #90 tablet. 09/17/17 Atorvastatin Calcium [Lipitor] 40 mg PO BEDTIME #30 tab 09/17/17 Ensure Enlive 237 ml PO BID #60 can 09/17/17 New Medications: Aspirin [Aspirin EC 81 MG] 81 mg PO DAILY #90 tablet. Atorvastatin Calcium [Lipitor] 40 mg PO BEDTIME #30 tab Ensure Enlive 237 ml PO BID #60 can Patient Discharge Instructions: 1. Patient will be discharged to home with hospice. 2. Patient with history of CVA with aphasia. Patient presented with fatigue. Patient found to have right basal ganglia CVA. Patient with some dysphagia. Patient continue with comfort feeding. Patient continue with aspirin 81 mg daily. 3. Patient with history of atrial fibrillation. Patient not on chronic anti coagulation therapy due to risk of bleeding. Patient continue with aspirin 81 mg daily. 4. Patient with hypertension. Patient will continue with carvedilol 6.25 mg 1 pill twice daily and Norvasc 10 mg 1 pill once daily. Hydralazine has been discontinued. Recommendation is to maintain blood pressures less 150/80. Further adjustment can be done by hospice. 5. Patient has hyperlipidemia. Patient continue with Lipitor 40 mg 1 pill once daily. 6. Patient has GERD. Patient continue with Pepcid 20 mg 1 pill twice daily. 7. Patient with dysphagia and malnutrition. Encourage oral intake. Patient continue with a pureed diet with thickened liquids. Aspiration precautions will need to be continued. Diet: Pureed diet, thickened liquid Activity: Fall precautions Time spent managing pt's care (in minutes): 55
[2017-09-17 12:29] VITALS: BP 183/88; TEMP 98.7
== END 2017-09-17 14:19 | disposition hospice, home (50) | DRG 65 ==
LOC: ER 18:24 → ERHOLD 21:23 → OBSVTOIN 21:23 → INTOOBSV 21:23 → 4TH 22:23 → OBSVTOIN 09-13 08:11
PROVIDERS: ADMIT Hospitalist; ATTEND Family Medicine
DX: I63.8 Other cerebral infarction (principal); N39.0 Urinary tract infection, site not specified; E44.0 Moderate protein-calorie malnutrition; I69.351 Hemiplegia and hemiparesis following cerebral infarction affecting right dominant side; R53.1 Weakness; I48.2 Chronic atrial fibrillation; J42 Unspecified chronic bronchitis; R13.10 Dysphagia, unspecified; K21.9 Gastro-esophageal reflux disease without esophagitis; I69.391 Dysphagia following cerebral infarction; I10 Essential (primary) hypertension; F01.50 Vascular dementia, unspecified severity, without behavioral disturbance, psychotic disturbance, mood disturbance, and anxiety; R60.9 Edema, unspecified; E53.8 Deficiency of other specified B group vitamins; Z51.5 Encounter for palliative care; Z66 Do not resuscitate; I69.320 Aphasia following cerebral infarction; E78.5 Hyperlipidemia, unspecified; Z79.02 Long term (current) use of antithrombotics/antiplatelets; Z79.82 Long term (current) use of aspirin; Z16.12 Extended spectrum beta lactamase (ESBL) resistance; E87.6 Hypokalemia; I65.22 Occlusion and stenosis of left carotid artery; B96.20 Unspecified Escherichia coli [E. coli] as the cause of diseases classified elsewhere; Z87.891 Personal history of nicotine dependence; M62.462 Contracture of muscle, left lower leg; M62.461 Contracture of muscle, right lower leg; E86.0 Dehydration
CPT/HCPCS: 36415; 51702; 70544; 70549; 70553; 71045; 74230; 80048; 80053; 80061; 80076; 81003; 82533; 82607; 82746; 82962; 83735; 83880; 84132; 84145; 84439; 84443; 84484; 85025; 85652; 93306; 97163; 99285; A9577; G0378; J0360; J1650; J2270; J3420; J7030; J7605